=== PATIENT | female | born 1990 | race Caucasian/White ===

== ENCOUNTER 2017-08-18 14:49 | Emergency (ER) | payer OTHER, SELFPAY ==
--- NOTE | 2017-08-18 15:53 | EDPHYS ---
Physician Documentation [facility] Name: Radha Toth Age: 26 yrs Sex: Female : 1990 Arrival Date: 08/18/2017 Time: 14:50 Bed 23 Private MD: None, None ED Physician Daniel Connolly HPI: 08/18 15:49 This 26 yrs old Female presents to ER via Ambulatory with complaints of genia Abscess. 15:49 The patient presents with an abscess of the right lower quadrant, The patient presents genia with cellulitis of the right lower quadrant, the patient presents with a swollen area of the right lower quadrant. Description: The affected area is small, localized, erythematous, raised. Onset: The symptoms/episode began/occurred 5 day(s) ago. Possible cause(s): unknown. Associated signs and symptoms: The patient has no apparent associated signs or symptoms. 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 - Social history:: Smoking status: Patient uses tobacco products, smokes one-half pack cigarettes per day. - Ebola Screening: : No symptoms or risks identified at this time. - Family history:: not pertinent. ROS: 15:49 Constitutional: Negative for fever, chills, and weight loss, Eyes: Negative for injury, genia pain, redness, and discharge, ENT: Negative for injury, pain, and discharge, Neck: Negative for injury, pain, and swelling, Cardiovascular: Negative for chest pain, palpitations, and edema, Respiratory: Negative for shortness of breath, cough, wheezing, and pleuritic chest pain, Abdomen/GI: Negative for abdominal pain, nausea, vomiting, diarrhea, and constipation, Back: Negative for injury and pain, : Negative for injury, bleeding, discharge, and swelling, MS/Extremity: Negative for injury and deformity, Neuro: Negative for headache, weakness, numbness, tingling, and seizure, Psych: Negative for depression, anxiety, suicide ideation, homicidal ideation, and hallucinations, Allergy/Immunology: Negative for hives, rash, and allergies, Endocrine: Negative for neck swelling, polydipsia, polyuria, polyphagia, and marked weight changes, Hematologic/Lymphatic: Negative for swollen nodes, abnormal bleeding, and unusual bruising. 15:49 Skin: Positive for erythema, rash, of the right lower quadrant. Exam: 15:49 Constitutional: This is a well developed, well nourished patient who is awake, alert, genia and in no acute distress. Head/Face: Normocephalic, atraumatic. Eyes: Pupils equal round and reactive to light, extra-ocular motions intact. Lids and lashes normal. Conjunctiva and sclera are non-icteric and not injected. Cornea within normal limits. Periorbital areas with no swelling, redness, or edema. ENT: Nares patent. No nasal discharge, no septal abnormalities noted. Tympanic membranes are normal and external auditory canals are clear. Oropharynx with no redness, swelling, or masses, exudates, or evidence of obstruction, uvula midline. Mucous membranes moist. Neck: Trachea midline, no thyromegaly or masses palpated, and no cervical lymphadenopathy. Supple, full range of motion without nuchal rigidity, or vertebral point tenderness. No Meningismus. Chest/axilla: Normal chest wall appearance and motion. Nontender with no deformity. No lesions are appreciated. Cardiovascular: Regular rate and rhythm with a normal S1 and S2. No gallops, murmurs, or rubs. Normal PMI, no JVD. No pulse deficits. Respiratory: Lungs have equal breath sounds bilaterally, clear to auscultation and percussion. No rales, rhonchi or wheezes noted. No increased work of breathing, no retractions or nasal flaring. Abdomen/GI: Soft, non-tender, with normal bowel sounds. No distension or tympany. No guarding or rebound. No evidence of tenderness throughout. Back: No spinal tenderness. No costovertebral tenderness. Full range of motion. MS/ Extremity: Pulses equal, no cyanosis. Neurovascular intact. Full, normal range of motion. Neuro: Awake and alert, GCS 15, oriented to person, place, time, and situation. Cranial nerves II-XII grossly intact. Motor strength 5/5 in all extremities. Sensory grossly intact. Cerebellar exam normal. Normal gait. Psych: Awake, alert, with orientation to person, place and time. Behavior, mood, and affect are within normal limits. 15:49 Skin: abscess, that is small, of the right lower quadrant, cellulitis, that is minimal, induration, that is mild is noted. Vital Signs: 15:18 BP 109 / 58; Pulse 57; Resp 18 S; Temp 98.6(TE); Pulse Ox 99% on R/A; Weight 93.89 kg aa5 (R); Height 5 ft. 7 in. (170.18 cm) (R); Pain 7/10; 15:18 Body Mass Index 32.42 (93.89 kg, 170.18 cm) aa5 MDM: 15:23 Patient medically screened. [facility] 08/18 15:54 Order name: Urine Dipstick--Ancillary (enter results) 08/18 15:54 Order name: Urine --Ancillary (enter results) 08/18 15:49 Order name: Urine Dipstick-Ancillary (obtain specimen); Complete Time: 15:52 [facility] 08/18 15:49 Order name: Urine Test (obtain specimen); Complete Time: 15:52 [facility] 08/18 15:49 Order name: Wound dressing; Complete Time: 16:02 [facility] Administered Medications: 16:01 Drug: Bactrim (160 mg-800 mg (DS) 1 tablet Route: PO; rk2 16:12 Follow up: Response: No adverse reaction rk2 16:01 Drug: Bactroban Ointment 2 % 1 application Route: Topical; Site: wound; rk2 16:12 Follow up: Response: No adverse reaction rk2 16:02 Drug: Doxycycline 200 mg Route: PO; rk2 16:12 Follow up: Response: No adverse reaction rk2 Disposition: 08/18/17 15:53 Discharged to Home. Impression: Cutaneous abscess of abdominal wall. - Condition is Stable. - Discharge Instructions: Abscess, Abscess, [id number]. - Prescriptions for Bactroban 2 % Topical Ointment - Apply to affected area 1 application by TOPICAL route every 12 hours; 30 gram. Doxycycline Hyclate 100 mg Oral Tablet - take 1 tablet by ORAL route every 12 hours; 20 tablet. Motrin IB 200 mg Oral Tablet - take 2 tablet by ORAL route every 6 hours As needed as needed with food; 30 tablet. Bactrim DS 800- 160 mg Oral Tablet - take 1 tablet by ORAL route every 12 hours for 10 days; 20 tablet. - Medication Reconciliation Form, Thank You Letter, Antibiotic Education, Prescription Opioid Use form. - Follow up: Private Physician; When: 2 - 3 days; Reason: Recheck today's complaints, Continuance of care, Re-evaluation by your physician. Follow up: Cordell Villasenor MD; When: 2 - 3 days; Reason: Recheck today's complaints, Re-evaluation by your physician. - Problem is new. - Symptoms have improved. Signatures: Dispatcher [employer] EDMS Daniel Connolly MD MD cha Calderon, Audri RN RN aa5 Fe Kulkarni RN RN rk2 Corrections: (The following items were deleted from the chart) 16:13 15:53 08/18/2017 15:53 Discharged to Home. Impression: Cutaneous abscess of abdominal rk2 wall. Condition is Stable. Forms are Medication Reconciliation Form, Thank You Letter, Antibiotic Education, Prescription Opioid Use. Follow up: Private Physician; When: 2 - 3 days; Reason: Recheck today's complaints, Continuance of care, Re-evaluation by your physician. Follow up: Cordell Villasenor; When: 2 - 3 days; Reason: Recheck today's complaints, Re-evaluation by your physician. Problem is new. Symptoms have improved. genia
--- NOTE | 2017-08-18 15:53 | ER ---
Nurse's Notes [facility] Name: Radha Toth Age: 26 yrs Sex: Female : 1990 Arrival Date: 08/18/2017 Time: 14:50 Bed 23 Private MD: None, None Diagnosis: Cutaneous abscess of abdominal wall Presentation: 08/18 15:15 Presenting complaint: Patient states: abscess to RLQ that began 1 week ago. Pt also c/o aa5 nausea, denies vomiting. Transition of care: patient was not received from another setting of care. Onset of symptoms was July 2017. Risk Assessment: Do you want to hurt yourself or someone else? Patient reports no desire to harm self or others. Initial Sepsis Screen: Does the patient meet any 2 criteria? No. Patient's initial sepsis screen is negative. Does the patient have a suspected source of infection? No. Patient's initial sepsis screen is negative. Care prior to arrival: None. 15:15 Method Of Arrival: Ambulatory aa5 15:15 Acuity: TU 3 aa5 Triage Assessment: 16:02 General: Appears in no apparent distress. well groomed, well developed, well nourished, rk2 Behavior is calm, cooperative. Pain: Complains of pain in abdomen and right lower quadrant. Neuro: Level of Consciousness is alert, obeys commands, Oriented to person, place, time, situation. Respiratory: Airway is patent Respiratory effort is even, unlabored, Respiratory pattern is regular, symmetrical. Derm: Skin is pink, warm \\T\\ dry. 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 - Social history:: Smoking status: Patient uses tobacco products, smokes one-half pack cigarettes per day. - Ebola Screening: : No symptoms or risks identified at this time. - Family history:: not pertinent. Screenin:02 Abuse screen: Denies threats or abuse. Nutritional screening: No deficits noted. rk2 Tuberculosis screening: No symptoms or risk factors identified. Fall Risk None identified. Vital Signs: 15:18 BP 109 / 58; Pulse 57; Resp 18 S; Temp 98.6(TE); Pulse Ox 99% on R/A; Weight 93.89 kg aa5 (R); Height 5 ft. 7 in. (170.18 cm) (R); Pain 7/10; 15:18 Body Mass Index 32.42 (93.89 kg, 170.18 cm) aa5 ED Course: 14:50 Patient arrived in ED. mr 14:50 None, None is Private Physician. mr 15:17 Triage completed. aa5 15:17 Arm band placed on. aa 15:23 Daniel Connolly MD is Attending Physician. [facility] 15:52 Cordell Villasenor MD is Referral Physician. [facility] 16:01 Fe Kulkarni, JOSUÉ is Primary Nurse. rk2 16:02 Patient has correct armband on for positive identification. Bed in low position. Call rk2 light in reach. 16:12 No provider procedures requiring assistance completed. Patient did not have IV access rk2 during this emergency room visit. Administered Medications: 16:01 Drug: Bactrim (160 mg-800 mg (DS) 1 tablet Route: PO; rk2 16:12 Follow up: Response: No adverse reaction rk2 16:01 Drug: Bactroban Ointment 2 % 1 application Route: Topical; Site: wound; rk2 16:12 Follow up: Response: No adverse reaction rk2 16:02 Drug: Doxycycline 200 mg Route: PO; rk2 16:12 Follow up: Response: No adverse reaction rk2 Outcome: 15:53 Discharge ordered by . [facility] 16:12 Discharged to home ambulatory. rk2 16:12 Condition: good 16:12 Discharge instructions given to patient, Prescriptions given X 4. 16:13 Patient left the ED. rk2 Signatures: Daniel Connolly MD MD cha Rivera, Maria Dariana Goss, RN RN [facility] Fe Kulkarni RN RN rk2
[2017-08-18 15:58] LABS: Urine Blood 3+ (NEG); Urine Glucose NEGATIVE (NEG); Urine Protein 1+ (NEG); Urine Specific Gravity >1.030 (1.005-1.030)
[2017-08-18] MEDS ORDERED: SMZ./TMP. 800/160 MG TABLET ONE (15:58)
[2017-08-18] MEDS ORDERED: DOXYCYCLINE 100 MG CAP PO ONE (15:58)
[2017-08-18] MEDS ORDERED: MUPIROCIN 2% OINT 22GM TUBE TOP ONE (15:58)
[2017-08-18 16:18] VITALS: BP 109/58; TEMP 98.6; O2SAT 99
== END 2017-08-18 16:13 | disposition home or self-care (01) ==
LOC: ER 14:49
DX: L02.211 Cutaneous abscess of abdominal wall (principal); Z88.5 Allergy status to narcotic agent; Z91.048 Other nonmedicinal substance allergy status; F17.210 Nicotine dependence, cigarettes, uncomplicated
CPT/HCPCS: 81003; 81025; 99283

== ENCOUNTER 2017-11-10 14:04 | Emergency (ER) | payer OTHER ==
[2017-11-10] MEDS ORDERED: EPINEPHRINE/PF 1 MG/ML AMP ONE (14:14)
[2017-11-10] MEDS ORDERED: EPINEPHRINE INH 0.5 ML VIAL IH ONE (14:17)
[2017-11-10] MEDS ORDERED: DIPHENHYDRAMINE 50 MG/ML VIAL ONE (14:18)
[2017-11-10] MEDS ORDERED: FAMOTIDINE 20 MG/2 ML VIAL IV ONE (14:20)
[2017-11-10] MEDS ORDERED: METHYLPREDNISOLONE 125 MG INJ ONE (14:20)
[2017-11-10] MEDS ORDERED: ALBUTEROL 2.5 MG/3 ML NEB SOL ONE (14:30)
[2017-11-10] MEDS ORDERED: NA CHLORIDE 0.9% 1,000 ML ONE (14:30)
[2017-11-10 15:13] LABS: Protime INR 1.05
--- NOTE | 2017-11-10 15:17 | RAD REPORT ---
EXAM DESCRIPTION: RAD - Chest Single View - 11/10/2017 3:00 pm CLINICAL HISTORY: Cough and congestion, shortness of breath COMPARISON: February 2016 TECHNIQUE: AP portable chest image was obtained 1432 hours . FINDINGS: Lungs are clear. Heart and vasculature are normal. No measurable pleural effusion and no p neumothorax. No gross bony abnormality seen. No acute aortic findings suspected. IMPRESSION: No acute cardiopulmonary process. No significant interval change.
[2017-11-10 15:31] LABS: ALT/SGPT 22 U/L (12-78); AST/SGOT 13 U/L (15-37); Albumin 3.6 g/dL (3.4-5.0); Alkaline Phosphatase 67 U/L (45-117); BUN Blood Urea Nitrogen 7 mg/dL (7-18); Bicarbonate 25 mmol/L (21-32); Bilirubin Direct 0.2 mg/dL (0-0.2); Bilirubin Total 0.7 mg/dL (0.2-1.0); CKMB Creatine Kinase MB < 1.0 ng/mL (0.3-3.6); Creatine Phosphokinase 62 U/L (26-192); Glucose Level 108 mg/dL (74-106); Magnesium 2.2 mg/dL (1.8-2.4); NT PRO-BNP 6 pg/mL (<125); Potassium 3.4 mmol/L (3.5-5.1); Protein, Total 6.7 g/dL (6.4-8.2); Sodium Level 142 mmol/L (136-145); Troponin (Emerg Dept Use Only) < 0.02 ng/mL (0.0-0.045)
[2017-11-10 15:36] LABS: Absolute Lymphocytes (CBC) 4.5 K/uL (0.7-4.9); Absolute Monocytes 0.7 K/uL (0.1-1.3); Absolute Neutrophil 5.8 K/uL (1.8-8.0); Basophils % 0.1 % (0-1.3); Eosinophils % 1.5 % (0-4.4); MCH 29.7 pg (27.0-35.0); Monocytes % 6.5 % (3.3-12.3); RBC Red Blood Cell Count 4.71 M/uL (3.86-4.86)
--- NOTE | 2017-11-10 16:12 | ER ---
Nurse's Notes [facility] Name: Radha Toth Age: 27 yrs Sex: Female : 1990 Arrival Date: 11/10/2017 Time: 14:07 Bed 6 Private MD: Diagnosis: Allergy, unspecified Presentation: 11/10 14:07 Presenting complaint: Patient states: "I think I am having an allergic reaction". Pt aa5 reports reaction began today at 0900 and has gotten worse. Swelling to lips noted at this time. Pt having difficulty speaking at this time. Pt states "I feel like my throat is closing". 14:07 Acuity: TU 1 aa5 14:07 Transition of care: patient was not received from another setting of care. Onset of aa5 symptoms was November 10, 2017. Care prior to arrival: None. 14:07 Method Of Arrival: Ambulatory aa5 16:31 Risk Assessment: Do you want to hurt yourself or someone else? Patient reports no aj desire to harm self or others. Initial Sepsis Screen: Does the patient meet any 2 criteria? No. Patient's initial sepsis screen is negative. Does the patient have a suspected source of infection? No. Patient's initial sepsis screen is negative. 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 - Social history:: Patient/guardian denies using alcohol, street drugs, The patient lives with family, Smoking status: Patient/guardian denies using tobacco. - Ebola Screening: : No symptoms or risks identified at this time. - Family history:: not pertinent. Screenin:30 Abuse screen: Denies threats or abuse. Denies injuries from another. Nutritional aj screening: No deficits noted. Tuberculosis screening: No symptoms or risk factors identified. Fall Risk None identified. Assessment: 14:08 Reassessment: Dr. Morfin at bedside . aa5 14:15 Reassessment: Received VO for all medications ordered and administered by me prior to aa5 administration. . 14:22 General: Appears in no apparent distress. comfortable, Behavior is cooperative, drowsy, aj Smells of body odor. Pain: Denies pain. Neuro: Level of Consciousness is awake, alert, obeys commands, Oriented to person, place, time, situation, Appropriate for age. Respiratory: Reports shortness of breath Airway is patent Trachea midline Respiratory effort is even, unlabored, Respiratory pattern is regular, symmetrical, Breath sounds are clear bilaterally. Derm: Skin is intact, is healthy with good turgor, Skin is pink, warm \\T\\ dry. normal. 14:25 Reassessment: Patient is alert, oriented x 3, equal unlabored respirations, skin aa5 warm/dry/pink. Pt is able to speak clearly at this time. Reports symptoms have improved. Neb tx ongoing at this time. . 15:31 Reassessment: Patient appears in no apparent distress at this time. No changes from aj previously documented assessment. Patient and/or family updated on plan of care and expected duration. Pain level reassessed. Patient is alert, oriented x 3, equal unlabored respirations, skin warm/dry/pink. Patient denies pain at this time. 16:30 Reassessment: Patient appears in no apparent distress at this time. No changes from aj previously documented assessment. Patient and/or family updated on plan of care and expected duration. Pain level reassessed. Patient is alert, oriented x 3, equal unlabored respirations, skin warm/dry/pink. Patient states feeling better. Patient states symptoms have improved. Vital Signs: 14:08 BP 138 / 82; Pulse 97; Resp 22 S; Pulse Ox 97% on R/A; Weight 92.99 kg (R); aa5 14:22 BP 116 / 51; Pulse 82; Resp 16; Pulse Ox 100% on Nebulizer Mask; aj 14:48 BP 112 / 85; Pulse 80; Resp 26 S; Pulse Ox 99% on R/A; jl7 15:31 BP 117 / 57; Pulse 74; Resp 20; Pulse Ox 99% on R/A; aj 16:00 BP 111 / 49; Pulse 74; Resp 16 S; Pulse Ox 97% on R/A; jl7 16:23 BP 106 / 55; Pulse 75; Resp 16 S; Pulse Ox 96% on R/A; jl7 ED Course: 14:07 Patient arrived in ED. aa5 14:07 Arm band placed on Patient placed in an exam room, on a stretcher. aa5 14:12 Inserted saline lock: 18 gauge in left antecubital area, using aseptic technique. IV aa5 inserted by SHEA Kyle. 14:15 Khushi Morfin MD is Attending Physician. ma2 14:15 Side rails up X2. Pulse ox on. NIBP on. mb4 14:18 Triage completed. aa5 14:21 Alejandra Mackenzie, RN is Primary Nurse. aj 14:35 EKG done, by ED staff, reviewed by Khushi Morfin MD. jl7 14:43 X-ray completed. Portable x-ray completed in exam room. Patient tolerated procedure tm4 well. 15:01 XRAY Chest (1 view) In Process Unspecified. EDMS 15:02 Initial lab(s) drawn, by me, sent to lab. mb4 16:30 No provider procedures requiring assistance completed. IV discontinued, intact, aj bleeding controlled, No redness/swelling at site. Pressure dressing applied. Administered Medications: 14:10 Drug: EPINEPHrine 1mg/mL 1:1,000 0.5 mg Route: IM; Site: right vastus lateralis; aa5 16:28 Follow up: Response: Marked relief of symptoms aj 14:12 Drug: Albuterol 1.25 mg Route: Inhalation; aa5 14:12 Drug: Racemic EPINPHrine 0.5 ml Route: Inhalation; aa5 14:12 Drug: Benadryl 50 mg Route: IVP; Site: left antecubital; aa5 16:27 Follow up: Response: No adverse reaction; Marked relief of symptoms aj 14:15 Drug: MethylPrednisoLONE 125 mg Route: IVP; Site: left antecubital; aa5 16:28 Follow up: Response: No adverse reaction; Marked relief of symptoms aj 14:15 Drug: Pepcid 10 mg Route: IVP; Site: left antecubital; aa5 16:28 Follow up: Response: Marked relief of symptoms aj 14:23 Drug: NS 0.9% 1000 ml Route: IV; Rate: 1 bolus; Site: left antecubital; aa5 Outcome: 16:11 Discharge ordered by . ma2 16:30 Discharged to home ambulatory. solo 16:30 Condition: good 16:30 Discharge instructions given to patient, Instructed on discharge instructions, follow up and referral plans. medication usage, Demonstrated understanding of instructions, follow-up care, medications, Prescriptions given X 3. 16:31 Patient left the ED. solo Signatures: Dispatcher [employer] EDAlejandra Moreno RN Meche Franklin tm4 Dariana Goss RN RN aa5 Saúl Billingsley RN RN jl7 Khushi Morfin MD MD ma2 Anabella Rueda mb4 Corrections: (The following items were deleted from the chart) 14:24 14:22 General: Appears in no apparent distress. comfortable, Behavior is cooperative, aj drowsy, solo 14:27 14:15 Inserted saline lock: 18 gauge in left antecubital area, using aseptic technique. [email or web address] mb4
--- NOTE | 2017-11-10 16:12 | EDPHYS ---
Physician Documentation [facility] Name: Radha Toth Age: 27 yrs Sex: Female : 1990 Arrival Date: 11/10/2017 Time: 14:07 Bed 6 Private MD: ED Physician Khushi Morfin HPI: 11/10 16:04 This 27 yrs old Female presents to ER via Ambulatory with complaints of ma2 allergic reaction . 16:04 The patient presents with difficulty swallowing, rash, redness of skin, wheezing. ma2 Onset: The symptoms/episode began/occurred gradually, 3 day(s) ago. Associated signs and symptoms: Pertinent positives: hives, shortness of breath, Pertinent negatives: Altered mental status dysphagia, rash, Syncope vomiting. Possible causes: The patient has no known obvious cause for the symptoms. At home the patient or guardian has treated the symptoms with Benadryl. Severity of symptoms: At their worst the symptoms were moderate in the emergency department the symptoms have resolved. The patient has experienced similar episodes in the past. 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 - Social history:: Patient/guardian denies using alcohol, street drugs, The patient lives with family, Smoking status: Patient/guardian denies using tobacco. - Ebola Screening: : No symptoms or risks identified at this time. - Family history:: not pertinent. ROS: 16:04 Constitutional: Negative for fever, chills, and weight loss, Eyes: Negative for injury, ma2 pain, redness, and discharge, Cardiovascular: Negative for chest pain, palpitations, and edema. 16:04 ENT: Positive for difficulty swallowing, hoarseness, Negative for injury or acute deformity, rhinorrhea. 16:04 Skin: Positive for rash, Negative for abrasions, cellulitis, laceration(s), lesions, pallor, acute changes. 16:04 All other systems are negative. Exam: 16:04 Constitutional: This is a well developed, well nourished patient who is awake, alert, ma2 and in no acute distress. Head/Face: Normocephalic, atraumatic. Chest/axilla: Normal chest wall appearance and motion. Nontender with no deformity. No lesions are appreciated. Cardiovascular: Regular rate and rhythm with a normal S1 and S2. No gallops, murmurs, or rubs. Normal PMI, no JVD. No pulse deficits. Abdomen/GI: Soft, non-tender, with normal bowel sounds. No distension or tympany. No guarding or rebound. No evidence of tenderness throughout. Neuro: Awake and alert, GCS 15, oriented to person, place, time, and situation. Cranial nerves II-XII grossly intact. Motor strength 5/5 in all extremities. Sensory grossly intact. Cerebellar exam normal. Normal gait. 16:04 Respiratory: moderate respiratory distress is noted, Respirations: diffuse wheezes, Breath sounds: 16:04 Skin: hives. Vital Signs: 14:08 BP 138 / 82; Pulse 97; Resp 22 S; Pulse Ox 97% on R/A; Weight 92.99 kg (R); aa5 14:22 BP 116 / 51; Pulse 82; Resp 16; Pulse Ox 100% on Nebulizer Mask; aj 14:48 BP 112 / 85; Pulse 80; Resp 26 S; Pulse Ox 99% on R/A; jl7 15:31 BP 117 / 57; Pulse 74; Resp 20; Pulse Ox 99% on R/A; aj 16:00 BP 111 / 49; Pulse 74; Resp 16 S; Pulse Ox 97% on R/A; jl7 16:23 BP 106 / 55; Pulse 75; Resp 16 S; Pulse Ox 96% on R/A; jl7 MDM: 14:15 Patient medically screened. ma2 16:04 Differential diagnosis: anaphylaxis, angioedema, Status Asthmaticus urticaria, unlikely ma2 angioedema. Data reviewed: vital signs, nurses notes, EKG, radiologic studies. Counseling: I had a detailed discussion with the patient and/or guardian regarding: the historical points, exam findings, and any diagnostic results supporting the discharge/admit diagnosis, the presence of at least one elevated blood pressure reading (>120/80) during this emergency department visit, lab results, the need for outpatient follow up. Response to treatment: the patient's symptoms have resolved after treatment. ED course: ptn wants to go home . 11/10 14:20 Order name: Basic Metabolic Panel [facility] 11/10 14:20 Order name: CBC with Diff [facility] 11/10 14:20 Order name: Ckmb [facility] 11/10 14:20 Order name: CPK [facility] 11/10 14:20 Order name: LFT's [facility] 11/10 14:20 Order name: Magnesium [facility] 11/10 14:20 Order name: NT PRO-BNP [facility] 11/10 14:20 Order name: PT-INR [facility] 11/10 14:20 Order name: Ptt, Activated [facility] 11/10 14:20 Order name: Troponin (emerg Dept Use Only) [facility] 11/10 14:20 Order name: XRAY Chest (1 view) [facility] 11/10 14:20 Order name: EKG; Complete Time: 14:21 [facility] 11/10 14:20 Order name: Cardiac monitoring; Complete Time: 14:21 [facility] 11/10 14:20 Order name: EKG - Nurse/Tech; Complete Time: 14:35 [facility] 11/10 14:20 Order name: IV Saline Lock; Complete Time: 14:22 [facility] 11/10 14:20 Order name: Labs collected and sent; Complete Time: 14:22 [facility] 11/10 14:20 Order name: O2 Per Protocol; Complete Time: 14:22 [facility] 11/10 14:20 Order name: O2 Sat Monitoring; Complete Time: 14:22 [facility] Administered Medications: 14:10 Drug: EPINEPHrine 1mg/mL 1:1,000 0.5 mg Route: IM; Site: right vastus lateralis; aa5 16:28 Follow up: Response: Marked relief of symptoms aj 14:12 Drug: Albuterol 1.25 mg Route: Inhalation; aa5 14:12 Drug: Racemic EPINPHrine 0.5 ml Route: Inhalation; aa5 14:12 Drug: Benadryl 50 mg Route: IVP; Site: left antecubital; aa5 16:27 Follow up: Response: No adverse reaction; Marked relief of symptoms aj 14:15 Drug: MethylPrednisoLONE 125 mg Route: IVP; Site: left antecubital; aa5 16:28 Follow up: Response: No adverse reaction; Marked relief of symptoms aj 14:15 Drug: Pepcid 10 mg Route: IVP; Site: left antecubital; aa5 16:28 Follow up: Response: Marked relief of symptoms aj 14:23 Drug: NS 0.9% 1000 ml Route: IV; Rate: 1 bolus; Site: left antecubital; aa5 Disposition: 11/10/17 16:11 Discharged to Home. Impression: Allergy, unspecified. - Condition is Stable. - Prescriptions for Benadryl 25 mg Oral Capsule - take 1 capsule by ORAL route every 6 hours As needed; 30 tablet. Prednisone 20 mg Oral Tablet - take 3 tablet by ORAL route once daily for 5 days; 15 tablet. EpiPen 0.3 mg Injection auto- injector - inject 1 pen by INTRAMUSCULAR route every 1-2 hours Inject into the outer portion of the thigh, through clothing if necessary. Indicated in the emergency treatment of allergic reactions; 2 Cartridge. - Medication Reconciliation Form, Thank You Letter, Antibiotic Education, Prescription Opioid Use form. - Follow up: Private Physician; When: Tomorrow; Reason: Continuance of care. - Problem is new. - Symptoms are resolved. Signatures: Dispatcher [employer] EDAlejandra Moreno RN RN aj Calderon, Audri, RN RN aa5 Khushi Morfin MD MD ma2 Corrections: (The following items were deleted from the chart) 16:31 16:11 11/10/2017 16:11 Discharged to Home. Impression: Allergy, unspecified. Condition aj is Stable. Forms are Medication Reconciliation Form, Thank You Letter, Antibiotic Education, Prescription Opioid Use. Follow up: Private Physician; When: Tomorrow; Reason: Continuance of care. Problem is new. Symptoms are resolved. ma2
[2017-11-10 16:49] VITALS: BP 106/55; O2SAT 96
--- NOTE | 2017-11-11 19:27 | EKG ---
Test Date: 2017-11-10 Test Time: 14:34:06 Branch Operations Coordinator: KERRIE MEASUREMENT RESULTS: Intervals: Rate: 80 SD: 150 QRSD: 80 QT: 380 QTc: 438 [place]: P: 21 SD: 150 QRS: 15 T: 4 INTERPRETIVE STATEMENTS: Normal sinus rhythm Normal ECG Compared to ECG 02/28/2016 10:33:36 Sinus arrhythmia no longer present Electronically Signed On 11-11-17 19:24:31 CDT by Ferny Ruff
== END 2017-11-10 16:31 | disposition home or self-care (01) ==
LOC: ER 14:04
DX: R21 Rash and other nonspecific skin eruption (principal); Z91.09 Other allergy status, other than to drugs and biological substances
CPT/HCPCS: 36415; 71045; 80048; 80076; 82550; 82553; 83735; 83880; 84484; 85025; 85610; 85730; 93005; 96372; 96374; 96375; 99291; 99292; J0171; J2930; J7030

== ENCOUNTER 2017-11-11 22:48 | Emergency (ER) | payer OTHER ==
[2017-11-12] MEDS ORDERED: predniSONE 20 MG TAB ONE (00:09)
--- NOTE | 2017-11-12 00:45 | ER ---
Nurse's Notes [facility] Name: Radha Toth Age: 27 yrs Sex: Female : 1990 Arrival Date: 11/11/2017 Time: 22:51 Bed 20 Private MD: Diagnosis: allergic reaction;Angioedema Presentation: 11/11 22:52 Presenting complaint: Patient states: ALLERGIC REACTION. Transition of care: patient bp was not received from another setting of care. Onset: The symptoms/episode began/occurred suddenly, just prior to arrival. Anaphylaxis evaluation, the patient reports or I have noted the following symptoms which indicate a significant risk of anaphylaxis: lightheadedness urticaria . The patient has been moved to a treatment room and the charge nurse or attending physician has been notified. Onset of symptoms was November 11, 2017 at 22:00. Risk Assessment: Do you want to hurt yourself or someone else? Patient reports no desire to harm self or others. Initial Sepsis Screen: Does the patient meet any 2 criteria? No. Patient's initial sepsis screen is negative. Does the patient have a suspected source of infection? No. Patient's initial sepsis screen is negative. Care prior to arrival: Medication(s) given: BENADRYL. 22:52 Method Of Arrival: Ambulatory bp 22:52 Acuity: TU 2 bp Triage Assessment: 23:08 General: Appears distressed, uncomfortable, obese, Behavior is cooperative, appropriate bp for age, anxious. Pain: Denies pain. EENT: SWOLLEN TONGUE. Neuro: Level of Consciousness is awake, alert, obeys commands, Oriented to person, place, time, situation, Appropriate for age. Cardiovascular: Rhythm is sinus rhythm. Respiratory: Airway is patent Respiratory effort is even, unlabored, Respiratory pattern is symmetrical, tachypnea. GI: No signs and/or symptoms were reported involving the gastrointestinal system. : No signs and/or symptoms were reported regarding the genitourinary system. Derm: Rash noted that is urticaria. Musculoskeletal: Circulation, motion, and sensation intact. Range of motion: intact in all extremities. 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 - Social history:: Smoking status: unknown. - Ebola Screening: : Patient negative for fever greater than or equal to 101.5 degrees Fahrenheit, and additional compatible Ebola Virus Disease symptoms Patient denies exposure to infectious person Patient denies travel to an Ebola-affected area in the 21 days before illness onset No symptoms or risks identified at this time. Screenin:13 Abuse screen: Denies threats or abuse. Denies injuries from another. Nutritional bp screening: No deficits noted. Tuberculosis screening: No symptoms or risk factors identified. Fall Risk None identified. Assessment: 22:52 General: 27YO WF P/W GENERALIZED HIVES/URTICARIA, SWOLLEN TONGUE, MUFFLED VOICE TONES bp AND TROUBLE HANDLING OWN SECRETIONS. PT MOVED TO TX ROOM AND PIV PLACEDMD AT B/S.. 22:55 Respiratory: Airway AT RISK Respiratory effort is even, unlabored, Respiratory pattern bp is symmetrical, tachypnea. 23:10 Reassessment: S/S IMPROVED, VOICE TONES NOTABLY IMPROVED, NO DROOLING, STRIDOR OR bp WHEEZING NOTED. 23:52 Reassessment: S/S CONTINUE TO IMPROVE, NO VISIBLE RASH AT THIS TIME. Respiratory: bp Airway is patent Respiratory effort is even, unlabored, Respiratory pattern is regular, symmetrical, Breath sounds are clear. 11/12 00:37 Reassessment: S/S COMPLETELY RELIEVED, DISPO PENDING. bp 00:51 Reassessment: PT D/C HOME AMBULATORY, DX WITH ALLERGIC REACTION AND ANGIOEDEMA. bp Vital Signs: 11/11 22:52 BP 135 / 52; Pulse 88; Resp 24; Temp 98.1; Pulse Ox 97% ; Weight 90.72 kg; bp 23:00 BP 109 / 65; Pulse 88; Resp 18; Pulse Ox 97% ; bp 23:45 BP 121 / 57; Pulse 82; Resp 22; Pulse Ox 95% ; bp 18 00:36 BP 97 / 73; Pulse 74; Resp 20; Pulse Ox 98% ; bp ED Course: 11/11 22:51 Patient arrived in ED. es 22:51 Anne Schmitz FNP-C [facility]. snw 22:52 Junior Peterson MD is Attending Physician. snw 22:52 Inserted saline lock: 18 gauge in right antecubital area, using aseptic technique. bp Blood collected. 23:01 Ross Meraz, RN is Primary Nurse. bp 23:07 Triage completed. bp 23:11 Arm band placed on. bp 23:13 Patient has correct armband on for positive identification. Bed in low position. Call bp light in reach. Side rails up X2. hospital monitor on. Pulse ox on. NIBP on. 23:53 No provider procedures requiring assistance completed. bp 11/12 00:51 IV discontinued, intact, bleeding controlled, No redness/swelling at site. Pressure bp dressing applied. Administered Medications: 11/11 22:55 Drug: Decadron - Dexamethasone 10 mg Route: IVP; Site: right antecubital; bp 23:15 Follow up: Response: Marked relief of symptoms bp 22:55 Drug: Benadryl 50 mg Route: IVP; Site: right antecubital; bp 23:16 Follow up: Response: Marked relief of symptoms bp 22:55 Drug: Pepcid 20 mg Route: IVP; Site: right antecubital; bp 23:16 Follow up: Response: Marked relief of symptoms bp 22:55 Drug: NS 0.9% 1000 ml Route: IV; Rate: 1 bolus; Site: right antecubital; bp 11/12 00:52 Follow up: IV Status: Completed infusion; IV Intake: 1000ml bp 11/11 22:55 Drug: EPINEPHrine 1mg/mL 1:1,000 0.2 ml Route: Sub-Q; Site: right upper arm; bp 23:16 Follow up: Response: Marked relief of symptoms bp 11/12 00:07 Drug: predniSONE 60 mg Route: PO; bp 00:07 Follow up: Response: Medication administered at discharge. bp Intake: 00:52 IV: 1000ml; Total: 1000ml. bp Outcome: 00:45 Discharge ordered by . tw4 00:52 Discharged to home ambulatory, with family. bp 00:52 Condition: stable 00:52 Discharge instructions given to patient, Instructed on discharge instructions, follow up and referral plans. medication usage, Demonstrated understanding of instructions, follow-up care, medications, Prescriptions given X 3. 00:52 Patient left the ED. bp Signatures: Anne Schmitz, SHAYE-C SAAS ARCHITECT-Csnw Izabela Harkins Brian, RN RN Junior Vidal MD MD tw4
--- NOTE | 2017-11-12 00:45 | EDPHYS ---
Physician Documentation [facility] Name: Radha Toth Age: 27 yrs Sex: Female : 1990 Arrival Date: 11/11/2017 Time: 22:51 Bed 20 Private MD: ED Physician Junior Peterson HPI: 11/12 05:45 This 27 yrs old Female presents to ER via Ambulatory with complaints of tw4 Allergic Reaction. 05:45 The patient presents with difficulty swallowing, diffuse swelling. The patient presents tw4 with rash, that is diffuse, redness of skin. Onset: The symptoms/episode began/occurred today. Associated signs and symptoms: The patient has no apparent associated signs or symptoms. Possible causes: The patient has no known obvious cause for the symptoms. At home the patient or guardian has treated the symptoms with Benadryl. Severity of symptoms: At their worst the symptoms were moderate in the emergency department the symptoms are unchanged. The patient has not experienced similar symptoms in the past. 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 - Social history:: Smoking status: unknown. - Ebola Screening: : Patient negative for fever greater than or equal to 101.5 degrees Fahrenheit, and additional compatible Ebola Virus Disease symptoms Patient denies exposure to infectious person Patient denies travel to an Ebola-affected area in the 21 days before illness onset No symptoms or risks identified at this time. ROS: 11/12 05:45 Constitutional: Negative for fever, chills, and weight loss, Cardiovascular: Negative tw4 for chest pain, palpitations, and edema, Respiratory: Negative for shortness of breath, cough, wheezing, and pleuritic chest pain, Abdomen/GI: Negative for abdominal pain, nausea, vomiting, diarrhea, and constipation. Back: Negative for injury and pain, MS/Extremity: Negative for injury and deformity. ENT: Positive for difficulty swallowing. Skin: Positive for rash. Exam: 05:45 Constitutional: This is a well developed, well nourished patient who is awake, alert, tw4 and in no acute distress. 05:45 Cardiovascular: Regular rate and rhythm with a normal S1 and S2. No gallops, murmurs, or rubs. Normal PMI, no JVD. No pulse deficits. Respiratory: Lungs have equal breath sounds bilaterally, clear to auscultation and percussion. No rales, rhonchi or wheezes noted. No increased work of breathing, no retractions or nasal flaring. Abdomen/GI: Soft, non-tender, with normal bowel sounds. No distension or tympany. No guarding or rebound. No evidence of tenderness throughout. MS/ Extremity: Pulses equal, no cyanosis. Neurovascular intact. Full, normal range of motion. Neuro: Awake and alert, GCS 15, oriented to person, place, time, and situation. Cranial nerves II-XII grossly intact. Motor strength 5/5 in all extremities. Sensory grossly intact. Cerebellar exam normal. Normal gait. 05:45 Head/face: Noted is swelling, of the right eye, right cheek, left cheek, left eye and mouth. 05:45 ENT: Posterior pharynx: swelling, that is moderate. Vital Signs: 11/11 22:52 BP 135 / 52; Pulse 88; Resp 24; Temp 98.1; Pulse Ox 97% ; Weight 90.72 kg; bp 23:00 BP 109 / 65; Pulse 88; Resp 18; Pulse Ox 97% ; bp 23:45 BP 121 / 57; Pulse 82; Resp 22; Pulse Ox 95% ; bp 11/12 00:36 BP 97 / 73; Pulse 74; Resp 20; Pulse Ox 98% ; bp MDM: 11/11 22:56 Patient medically screened. tw4 11/12 05:45 Differential diagnosis: anaphylaxis, angioedema. Data reviewed: vital signs, nurses tw4 notes. Data interpreted: Pulse oximetry: Interpretation: normal. Counseling: I had a detailed discussion with the patient and/or guardian regarding: the historical points, exam findings, and any diagnostic results supporting the discharge/admit diagnosis. Medication response: Decadron ,Benadryl, and pepcid. Special discussion: I discussed with the patient/guardian in detail that at this point there is no indication for admission to the hospital. It is understood, however, that if the symptoms persist or worsen the patient needs to return immediately for re-evaluation. 11/11 22:56 Order name: Cardiac monitoring; Complete Time: 23:14 tw4 Administered Medications: 11/11 22:55 Drug: Decadron - Dexamethasone 10 mg Route: IVP; Site: right antecubital; bp 23:15 Follow up: Response: Marked relief of symptoms bp 22:55 Drug: Benadryl 50 mg Route: IVP; Site: right antecubital; bp 23:16 Follow up: Response: Marked relief of symptoms bp 22:55 Drug: Pepcid 20 mg Route: IVP; Site: right antecubital; bp 23:16 Follow up: Response: Marked relief of symptoms bp 22:55 Drug: NS 0.9% 1000 ml Route: IV; Rate: 1 bolus; Site: right antecubital; bp 11/12 00:52 Follow up: IV Status: Completed infusion; IV Intake: 1000ml bp 11/11 22:55 Drug: EPINEPHrine 1mg/mL 1:1,000 0.2 ml Route: Sub-Q; Site: right upper arm; bp 23:16 Follow up: Response: Marked relief of symptoms bp 11/12 00:07 Drug: predniSONE 60 mg Route: PO; bp 00:07 Follow up: Response: Medication administered at discharge. bp Disposition: 11/12/17 00:45 Discharged to Home. Impression: allergic reaction, Angioedema. - Condition is Stable. - Discharge Instructions: Allergies, Adult, Angioedema, [id number]. - Prescriptions for Medrol (Sha) 4 mg Oral Tablets, Dose Pack - take 1 tablet by ORAL route as directed - follow package instructions; 1 packet. Pepcid 20 mg Oral Tablet - take 1 tablet by ORAL route once daily; 20 tablet. EpiPen 0.3 mg Injection auto- injector - inject 1 pen by INTRAMUSCULAR route as directed Inject into the outer portion of the thigh, through clothing if necessary. Indicated in the emergency treatment of allergic reactions; 1 Pack. - Medication Reconciliation Form, Thank You Letter, Antibiotic Education, Prescription Opioid Use form. - Follow up: Private Physician; When: Upon discharge from the Emergency Department; Reason: Recheck today's complaints, Continuance of care, Re-evaluation by your physician. - Problem is new. - Symptoms have improved. Signatures: Ross Meraz RN RN bp Junior Peterson MD MD tw4 Corrections: (The following items were deleted from the chart) 00:52 00:45 11/12/2017 00:45 Discharged to Home. Impression: allergic reaction; Angioedema. bp Condition is Stable. Forms are Medication Reconciliation Form, Thank You Letter, Antibiotic Education, Prescription Opioid Use. Follow up: Private Physician; When: Upon discharge from the Emergency Department; Reason: Recheck today's complaints, Continuance of care, Re-evaluation by your physician. Problem is new. Symptoms have improved. tw4
[2017-11-12 00:58] VITALS: TEMP 98.1
[2017-11-12 01:01] VITALS: BP 97/73; O2SAT 98
== END 2017-11-12 00:52 | disposition home or self-care (01) ==
LOC: ER 22:48
DX: T78.3XXA Angioneurotic edema, initial encounter (principal); Z88.5 Allergy status to narcotic agent
CPT/HCPCS: 96361; 96372; 96374; 96375; 99284; J7512

== ENCOUNTER 2017-11-12 14:50 | Inpatient (IN) | payer OTHER ==
[2017-11-12] MEDS ORDERED: NA CHLORIDE 0.9% 1,000 ML ONE (15:19)
[2017-11-12] MEDS ORDERED: FAMOTIDINE 20 MG/2 ML VIAL IV ONE (15:35)
[2017-11-12] MEDS ORDERED: DEXAMETHASONE 10 MG/ML VIAL ONE (15:35)
[2017-11-12] MEDS ORDERED: DIPHENHYDRAMINE 12.5MG/5ML LIQ ONE (15:36)
[2017-11-12 15:38] LABS: Absolute Lymphocytes (CBC) 2.6 K/uL (0.7-4.9); Absolute Monocytes 0.6 K/uL (0.1-1.3); Basophils % 0.1 % (0-1.3); Lymphocytes % 12.7 % (15.3-44.8); MCH 29.7 pg (27.0-35.0); MCV 88.1 fL (80-100); MPV 8.8 fL (7.6-11.3); Monocytes % 2.9 % (3.3-12.3); RBC Red Blood Cell Count 4.43 M/uL (3.86-4.86)
--- NOTE | 2017-11-12 15:41 | ER ---
Nurse's Notes [facility] Name: Radha Toth Age: 27 yrs Sex: Female : 1990 Arrival Date: 11/12/2017 Time: 14:52 Bed 3 Private MD: None, None Diagnosis: Anaphylactic reaction due to unspecified food Presentation: 11/12 14:53 Presenting complaint: EMS states: Hives, Difficulty breathing, Stridor and wheezes, sg unknown what the patient is allergic to, but this has happened before over the last couple weeks, and was seen here in the dept. Transition of care: patient was not received from another setting of care. Onset: The symptoms/episode began/occurred acutely, just prior to arrival. Anaphylaxis evaluation, the patient reports or I have noted the following symptoms which indicate a significant risk of anaphylaxis: . The patient has been moved to a treatment room and the charge nurse or attending physician has been notified. Onset of symptoms was November 12, 2017. Risk Assessment: Do you want to hurt yourself or someone else? Patient reports no desire to harm self or others. Care prior to arrival: Medication(s) given: Epi IM x2, IV Benadryl 25 mg, Solumedrol 125 mg IVP. 14:53 Method Of Arrival: EMS: [facility] sg 14:53 Acuity: TU 2 sg 15:15 Initial Sepsis Screen: Does the patient meet any 2 criteria? No. Patient's initial hb sepsis screen is negative. Does the patient have a suspected source of infection? No. Patient's initial sepsis screen is negative. Historical: - Allergies: 14:59 Codeine (Anaphylaxis); sg - PMHx: 14:59 acute stroke years ago; angioedema, allergic reactions multiple; sg - Immunization history:: Adult Immunizations up to date. - Social history:: Smoking status: Patient/guardian denies using tobacco. - Ebola Screening: : No symptoms or risks identified at this time. Screenin:05 Abuse screen: Denies threats or abuse. Denies injuries from another. Nutritional hb screening: No deficits noted. Tuberculosis screening: No symptoms or risk factors identified. Fall Risk None identified. Assessment: 14:59 General: Appears in no apparent distress. Behavior is calm, cooperative. Pain: Denies hb pain. Neuro: Level of Consciousness is awake, alert, obeys commands, Oriented to person, place, time, situation. Cardiovascular: Heart tones S1 S2 present Capillary refill < 3 seconds Patient's skin is warm and dry. Respiratory: Airway is patent Trachea midline Respiratory effort is even, unlabored, Respiratory pattern is regular, symmetrical, Breath sounds are clear bilaterally. GI: No signs and/or symptoms were reported involving the gastrointestinal system. : No signs and/or symptoms were reported regarding the genitourinary system. EENT: No signs and/or symptoms were reported regarding the EENT system. Derm: Skin is pink, warm \T\ dry. Musculoskeletal: No signs and/or symptoms reported regarding the musculoskeletal system. 15:35 Reassessment: Pt c/o itching to bottom of feet and bilateral legs. MARLENY Lehman notified, hb Pepcid, Solu-Medrol. and Atarax administered as ordered. 16:01 Reassessment: Sudden onset SOB, severe anxiety, clawing at throat. SpO2 100% on 2L NC. hb MARLENY Lehman and Dr. Casper notified at bedside. Pt placed on NRB, epi .5mg IM administered as ordered. 16:09 Reassessment: MARLENY Brennan notified of critical lab value. WBC 20.2. ss 16:10 Reassessment: Pt sitting upright in bed, talking and laughing with family member at hb bedside. NAD. VSS. Vital Signs: 14:57 BP 114 / 102; Pulse 92; Resp 26 S; Temp 97.9; Pulse Ox 96% on R/A; sg 15:11 BP 128 / 62; Pulse 90; Resp 21 S; Pulse Ox 96% on R/A; sg 16:06 BP 118 / 59; Pulse 80; Resp 16; Pulse Ox 98% on R/A; ss ED Course: 14:52 Patient arrived in ED. sg 14:52 None, None is Private Physician. sg 14:57 Triage completed. sg 14:57 Arm band placed on. sg 15:02 Martin Eason NP is PHCP. pm1 15:02 Daniel Sharif MD is Attending Physician. pm1 15:04 PHCP role handed off by Martin Eason NP pm1 15:04 Dominik Roca PA is PHCP. pm1 15:05 Patient has correct armband on for positive identification. Placed in gown. Bed in low hb position. Call light in reach. Side rails up X 1. 15:15 Maintain EMS IV. Dressing intact. Site clean \T\ dry. Gauge \T\ site: 20g LEFT AC. minimal hb blood return, flushes easily. 15:25 Inserted saline lock: 20 gauge in right wrist, using aseptic technique. hb 15:39 Marcia Rueda RN is Primary Nurse. hb 15:40 Enmanuel Curtis MD is Hospitalizing Provider. jr8 16:28 No provider procedures requiring assistance completed. Patient admitted, IV remains in hb place. Administered Medications: 15:15 Drug: NS 0.9% 1000 ml Route: IV; Rate: 1000 ml; Site: left antecubital; hb 16:15 Follow up: Response: No adverse reaction; IV Status: Completed infusion hb 15:35 Drug: Pepcid 20 mg Route: IVP; Site: left antecubital; hb 16:00 Follow up: Response: No adverse reaction hb 15:35 Drug: hydrOXYzine 25 mg Route: IM; Site: right deltoid; hb 16:00 Follow up: Response: No adverse reaction hb 15:35 Drug: Decadron - Dexamethasone 10 mg Route: IVP; Site: left antecubital; hb 16:10 Follow up: Response: No adverse reaction hb 16:02 Drug: EPINEPHrine 1mg/mL 1:1,000 0.5 mg Route: IM; Site: right vastus lateralis; hb 16:30 Follow up: Response: No adverse reaction hb Outcome: 15:40 Decision to Hospitalize by Provider. jr8 16:28 Admitted to Tele accompanied by tech, family with patient, via wheelchair, room 414, hb with oxygen, with chart, Report called to JOSUÉ Guillen 16:28 Condition: stable 16:28 Instructed on the need for admit, Demonstrated understanding of instructions. 16:49 Patient left the ED. hb Signatures: Jaden Patel RN RN sg Smirch, Shelby, RN RN ss Roszak, Josh, PA PA jr8 Martin Eason, OFFICE MACHINE SERVICE SUPERVISOR OFFICE MACHINE SERVICE SUPERVISOR pm1 Marcia Rueda RN RN hb
--- NOTE | 2017-11-12 15:42 | EDPHYS ---
Physician Documentation [facility] Name: Radha Toth Age: 27 yrs Sex: Female : 1990 Arrival Date: 11/12/2017 Time: 14:52 Bed 3 Private MD: None, None ED Physician Daniel Sharif HPI: 11/12 15:36 This 27 yrs old Female presents to ER via EMS with complaints of Allergic jr8 Reaction. 15:36 The patient presents with difficulty swallowing, itching, redness of skin, shortness of jr8 breath, stridor, wheezing. Onset: The symptoms/episode began/occurred acutely, today. Associated signs and symptoms: The patient has no apparent associated signs or symptoms. Possible causes: The patient has no known obvious cause for the symptoms. At home the patient or guardian has treated the symptoms with nothing. Severity of symptoms: At their worst the symptoms were severe in the emergency department the symptoms have improved markedly. The patient has experienced similar episodes in the past, a few times. The patient has been recently seen by a physician:. EMS called out for allergic reaction. Stated that patient had urticaria along with breathing difficulty and obtundation. Benadryl, Solu-Medrol, and Epinephrine x 2 IM were given. Patient now doing much better. Has been here the past two days for same symptoms. Every time was after a meal. Historical: - Allergies: 14:59 Codeine (Anaphylaxis); sg - PMHx: 14:59 acute stroke years ago; angioedema, allergic reactions multiple; sg - Immunization history:: Adult Immunizations up to date. - Social history:: Smoking status: Patient/guardian denies using tobacco. - Ebola Screening: : No symptoms or risks identified at this time. ROS: 15:36 Eyes: Negative for injury, pain, redness, and discharge, ENT: Negative for injury, jr8 pain, and discharge, Neck: Negative for injury, pain, and swelling, Cardiovascular: Negative for chest pain, palpitations, and edema, Abdomen/GI: Negative for abdominal pain, nausea, vomiting, diarrhea, and constipation, Back: Negative for injury and pain, MS/Extremity: Negative for injury and deformity, Neuro: Negative for headache, weakness, numbness, tingling, and seizure. 15:36 Respiratory: Positive for dyspnea on exertion, shortness of breath, wheezing. 15:36 Skin: Positive for rash. Exam: 15:36 Eyes: Pupils equal round and reactive to light, extra-ocular motions intact. Lids and jr8 lashes normal. Conjunctiva and sclera are non-icteric and not injected. Cornea within normal limits. Periorbital areas with no swelling, redness, or edema. ENT: Nares patent. No nasal discharge, no septal abnormalities noted. Tympanic membranes are normal and external auditory canals are clear. Oropharynx with no redness, swelling, or masses, exudates, or evidence of obstruction, uvula midline. Mucous membranes moist. Neck: Trachea midline, no thyromegaly or masses palpated, and no cervical lymphadenopathy. Supple, full range of motion without nuchal rigidity, or vertebral point tenderness. No Meningismus. Cardiovascular: Regular rate and rhythm with a normal S1 and S2. No gallops, murmurs, or rubs. Normal PMI, no JVD. No pulse deficits. Respiratory: Lungs have equal breath sounds bilaterally, clear to auscultation and percussion. No rales, rhonchi or wheezes noted. No increased work of breathing, no retractions or nasal flaring. Abdomen/GI: Soft, non-tender, with normal bowel sounds. No distension or tympany. No guarding or rebound. No evidence of tenderness throughout. Back: No spinal tenderness. No costovertebral tenderness. Full range of motion. Skin: Warm, dry with normal turgor. Normal color with no rashes, no lesions, and no evidence of cellulitis. MS/ Extremity: Pulses equal, no cyanosis. Neurovascular intact. Full, normal range of motion. Neuro: Awake and alert, GCS 15, oriented to person, place, time, and situation. Cranial nerves II-XII grossly intact. Motor strength 5/5 in all extremities. Sensory grossly intact. Cerebellar exam normal. Normal gait. Vital Signs: 14:57 BP 114 / 102; Pulse 92; Resp 26 S; Temp 97.9; Pulse Ox 96% on R/A; sg 15:11 BP 128 / 62; Pulse 90; Resp 21 S; Pulse Ox 96% on R/A; sg 16:06 BP 118 / 59; Pulse 80; Resp 16; Pulse Ox 98% on R/A; ss MDM: 15:08 Patient medically screened. 8 15:36 Data reviewed: vital signs, nurses notes, lab test result(s). Data interpreted: Pulse jr8 oximetry: on room air is 96 %. Interpretation: normal. Counseling: I had a detailed discussion with the patient and/or guardian regarding: the historical points, exam findings, and any diagnostic results supporting the discharge/admit diagnosis, lab results, the need for further work-up and treatment in the hospital. 11/12 15:09 Order name: CBC with Diff; Complete Time: 16:15 jr8 11/12 15:09 Order name: Basic Metabolic Panel; Complete Time: 16:15 jr8 11/12 15:44 Order name: Manual Differential; Complete Time: 16:15 EDMS 11/12 15:09 Order name: IV; Complete Time: 15:10 jr8 Administered Medications: 15:15 Drug: NS 0.9% 1000 ml Route: IV; Rate: 1000 ml; Site: left antecubital; hb 16:15 Follow up: Response: No adverse reaction; IV Status: Completed infusion hb 15:35 Drug: Pepcid 20 mg Route: IVP; Site: left antecubital; hb 16:00 Follow up: Response: No adverse reaction hb 15:35 Drug: hydrOXYzine 25 mg Route: IM; Site: right deltoid; hb 16:00 Follow up: Response: No adverse reaction hb 15:35 Drug: Decadron - Dexamethasone 10 mg Route: IVP; Site: left antecubital; hb 16:10 Follow up: Response: No adverse reaction hb 16:02 Drug: EPINEPHrine 1mg/mL 1:1,000 0.5 mg Route: IM; Site: right vastus lateralis; hb 16:30 Follow up: Response: No adverse reaction hb Disposition: 17:30 Co-signature as Attending Physician, Daniel Sharif MD I agree with the assessment and kdr plan of care. Disposition: 11/12/17 15:40 Hospitalization ordered by Enmanuel Curtis for Observation. Preliminary diagnosis is Anaphylactic reaction due to unspecified food. - Bed requested for Telemetry/MedSurg (observation). - Status is Observation. hb - Condition is Fair. - Problem is new. - Symptoms have improved. UTI on Admission? No Signatures: Dispatcher [employer] Melissa Knowles RN RN dw Gay, Steven, RN RN sg Rittger, Kevin, MD MD [facility] Dominik Roca PA PA jr8 Marcia Rueda, RN RN hb Corrections: (The following items were deleted from the chart) 16:11 15:40 Hospitalization Ordered by Enmanuel Curtis MD for Observation. Preliminary diagnosis dw is Anaphylactic reaction due to unspecified food. Bed requested for Telemetry/MedSurg (observation). Status is Observation. Condition is Fair. Problem is new. Symptoms have improved. UTI on Admission? No. jr8 16:49 16:11 11/12/2017 15:40 Hospitalization Ordered by Enmanuel Curtis MD for Observation. hb Preliminary diagnosis is Anaphylactic reaction due to unspecified food. Bed requested for Telemetry/MedSurg (observation). Status is Observation. Condition is Fair. Problem is new. Symptoms have improved. UTI on Admission? No. dw
[2017-11-12 15:51] LABS: Potassium 3.3 mmol/L (3.5-5.1)
[2017-11-12] MEDS ORDERED: hydrOXYzine HCl 50 MG/ML VIAL IM ONE (16:00)
[2017-11-12] MEDS ORDERED: EPINEPHRINE/PF 1 MG/ML AMP ONE (16:02)
[2017-11-12 16:08] LABS: Blood Morphology Comment NOT SEEN (NOT SEEN); Platelet Estimate ADEQ; Toxic Granulation 1+
[2017-11-12] MEDS ORDERED: ONDANSETRON 4 MG/2 ML VIAL IV PRN (16:52)
[2017-11-12] MEDS: NA CHLORIDE 0.9% 1,000 ML IV SCH (17:00)
[2017-11-12] MEDS: METHYLPREDNISOLONE 40 MG INJ IV SCH (17:53)
[2017-11-12] MEDS ORDERED: METHYLPREDNISOLONE 125 MG INJ ONE (19:37)
[2017-11-12] MEDS ORDERED: EPINEPHRINE INH 0.5 ML VIAL IH ONE (20:52)
[2017-11-13] MEDS: METHYLPREDNISOLONE 40 MG INJ IV SCH ×5 (03:47→23:55)
[2017-11-13] MEDS: NA CHLORIDE 0.9% 1,000 ML IV SCH ×3 (03:50→22:52)
[2017-11-13 05:09] LABS: Absolute Monocytes 0.5 K/uL (0.1-1.3); Absolute Neutrophil 9.9 K/uL (1.8-8.0); Basophils % 0.3 % (0-1.3); Hematocrit 34.8 % (36.0-45.0); Lymphocytes % 15.8 % (15.3-44.8); MCH 29.6 pg (27.0-35.0); MCV 87.7 fL (80-100); MPV 9.5 fL (7.6-11.3); Monocytes % 4.2 % (3.3-12.3); RBC Red Blood Cell Count 3.96 M/uL (3.86-4.86)
[2017-11-13 05:22] LABS: BUN Blood Urea Nitrogen 11 mg/dL (7-18); Bicarbonate 24 mmol/L (21-32); Glucose Level 147 mg/dL (74-106); Sodium Level 144 mmol/L (136-145)
[2017-11-13] MEDS: ACETAMINOPHEN 500 MG TAB PO PRN (05:44)
[2017-11-13] MEDS ORDERED: DIPHENHYDRAMINE 25 MG TAB/CAP ONE (09:20)
[2017-11-13] MEDS ORDERED: LORATADINE 10 MG TAB PO PRN (10:48)
[2017-11-13] MEDS: MONTELUKAST 10 MG TAB PO SCH (11:14)
[2017-11-13] MEDS: RANITIDINE 150 MG TABLET PO SCH (11:14)
--- NOTE | 2017-11-13 13:58 | P.HP ---
Certification for Inpatient Patient admitted to: Inpatient With expected LOS: >2 Midnights Practitioner: I am a practitioner with admitting privileges, knowledge of patient current condition, hospital course, and medical plan of care. Services: Services provided to patient in accordance with Admission requirements found in Title 42 Section 412.3 of the Code of Federal Regulations Patient History Date of Service: 11/13/17 Primary Care Provider: Ever Reason for admission: anaphalyxis History of Present Illness: Patient is a pleasant woman. She has been having itching reddness. She did this with a boudon ball, cheese pizza. She has been to the ER 3 nights in a row. She was started on steroids. Was doing well on the floor. Had dinner of [employer] steak and cake. She again had the symptoms. She had a code yellow called. Was given more steroids and transfered to ICU. She has a history of migranes. No new medications, or new home. No noted recent exposures. 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 She does not recall any episodes like this previously. Allergies codeine Allergy (Mild, Verified 11/12/17 16:54) Unknown "crest toothpaste" Adverse Reaction (Intermediate, Uncoded 11/12/17 16:54) Anaphylaxis Home Medications: NK [No Home Meds] 11/12/17 - Past Medical/Surgical History Has patient received pneumonia vaccine in the past: No Diabetic: No -: cholecystitis -: left ankle surgery -: choleystectomy - Family History Father -: Heart disease, Cancer Mother -: Heart disease, Cancer - Social History Smoking Status: Current every day smoker Alcohol use: Yes Caffeine use: Yes Place of Residence: Home Review of Systems 10-point ROS is otherwise unremarkable General: Sweats, Other (generalized itching) ENT: Throat Pain (after eating) Respiratory: Shortness of Breath Integumentary: Other (generalized erythema of the skin) Physical Examination - Vital Signs Temperature: 98.4 F Blood Pressure: 111/55 Pulse: 46 Respirations: 16 Pulse Ox (%): 94 - Physical Exam General: Alert, In no apparent distress HEENT: Atraumatic, PERRLA, Mucous membr. moist/pink, EOMI, Sclerae nonicteric Neck: Supple, 2+ carotid pulse no bruit, No LAD, Without JVD or thyroid abnormality Respiratory: Clear to auscultation bilaterally, Normal air movement Cardiovascular: Regular rate/rhythm, Normal S1 S2 Gastrointestinal: Normal bowel sounds, No tenderness Musculoskeletal: No tenderness Integumentary: No rashes Neurological: Normal gait, Normal speech, Normal strength at 5/5 x4 extr, Normal tone, Normal affect Lymphatics: No axilla or inguinal lymphadenopathy - Studies Laboratory Data (last 24 hrs) 11/12/17 15:26: WBC 20.2 H* D, Hgb 13.1, Hct 39.0, Plt Count 301 11/12/17 15:25: Sodium 145, Potassium 3.3 L, BUN 8, Creatinine 0.90, Glucose 171 H Assessment and Plan - Problems (Diagnosis) (1) Anaphylaxis Onset Date: 11/13/17 Current Visit: Yes Status: Acute Plan: Have consulted Dr. Balbuena and discussed with Dr. Mejía. The patient is not likely to have esophagitis. As this is mostly pain in the throat and esophagus. She may have an unknow allergan exposure or food allery. Per Dr. Mejía will start singular, H1 and H2 Deonte. She will need an epipen on discharge. Would most likely need a follow up with [facility] system manager in [place]. Qualifiers: Encounter type: initial encounter Qualified Code(s): T78.2XXA - Anaphylactic shock, unspecified, initial encounter Discharge Plan: Home Plan to discharge in: 24 Hours - Advance Directives Does patient have a Living Will: No Does patient have a Durable POA for Healthcare: No - Code Status/Comfort Care Code Status Assessed: Yes Code Status: Full Code Physician Review: Patient Assessed, Agree with Above Assessment and Plan Critical Care: Yes Time Spent Managing Pts Care (In Minutes): 75
[2017-11-13] MEDS: DIPHENHYDRAMINE 25 MG TAB/CAP PO PRN (20:17)
[2017-11-14] MEDS: ACETAMINOPHEN 500 MG TAB PO PRN (01:33)
[2017-11-14] MEDS: NA CHLORIDE 0.9% 1,000 ML IV SCH ×2 (01:37→07:37)
[2017-11-14 06:07] VITALS: O2SAT 97
[2017-11-14] MEDS: METHYLPREDNISOLONE 40 MG INJ IV SCH (06:26)
[2017-11-14 06:35] VITALS: BMI 35.1
[2017-11-14] MEDS: DIPHENHYDRAMINE 25 MG TAB/CAP PO PRN (07:18)
[2017-11-14] MEDS: RANITIDINE 150 MG TABLET PO SCH (07:36)
[2017-11-14] MEDS: MONTELUKAST 10 MG TAB PO SCH (07:37)
--- NOTE | 2017-11-14 08:02 | P.DS ---
Admission Date: 11/12/17 Discharge Date: 11/14/17 Primary Care Provider: Ever Disposition: ROUTINE DISCHARGE Discharge Condition: GOOD Reason for Admission: anaphalyxis - Problems (1) Anaphylaxis Onset Date: 11/13/17 Current Visit: Yes Status: Acute Qualifiers: Encounter type: initial encounter Qualified Code(s): T78.2XXA - Anaphylactic shock, unspecified, initial encounter Brief History of Present Illness: Patient is a pleasant woman. She has been having itching reddness. She did this with a boudon ball, cheese pizza. She has been to the ER 3 nights in a row. She was started on steroids. Was doing well on the floor. Had dinner of [employer] steak and cake. She again had the symptoms. She had a code yellow called. Was given more steroids and transfered to ICU. She has a history of migranes. No new medications, or new home. No noted recent exposures. 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 She does not recall any episodes like this previously. Hospital Course: Patient admitted to the icu. She had several episodes of itching. Once after solumedrol given. Some improvement with allergy medications. Have discussed this case with Dr. Balbuena and Dr. Kim. She did have an episode 1 year ago with a crest whitening toothpaste. Will discharge her on h1 and h2 blockers , singular and an epipen. Will also try a proair inhaler. Will try to refer her from the office. Provide the number to the clinic in [place] . Will have her follow up with me as well. Vital Signs/Physical Exam: Temp Pulse Resp BP Pulse Ox 98.6 F 62 19 109/58 L 95 11/14/17 04:00 11/14/17 07:00 11/14/17 07:00 11/14/17 07:00 11/14/17 07:00 General: Mild distress, Other (reddness and itching) HEENT: Atraumatic, PERRLA, EOMI Neck: Supple, JVD not distended Respiratory: Clear to auscultation bilaterally, Normal air movement Cardiovascular: Regular rate/rhythm, Normal S1 S2 Gastrointestinal: Normal bowel sounds, No tenderness Musculoskeletal: No tenderness Integumentary: No rashes, Erythema, Warmth Neurological: Normal speech, Normal tone, Normal affect Lymphatics: No axilla or inguinal lymphadenopathy Laboratory Data at Discharge: WBC 12.4 K/uL (4.3-10.9) H D 11/13/17 04:40 Hgb 11.7 g/dL (12.0-15.0) L 11/13/17 04:40 Hct 34.8 % (36.0-45.0) L 11/13/17 04:40 Plt Count 229 K/uL (152-406) D 11/13/17 04:40 Sodium 144 mmol/L (136-145) 11/13/17 04:40 Potassium 4.0 mmol/L (3.5-5.1) 11/13/17 04:40 BUN 11 mg/dL (7-18) 11/13/17 04:40 Creatinine 0.60 mg/dL (0.55-1.3) 11/13/17 04:40 Glucose 147 mg/dL (74-106) H 11/13/17 04:40 Home Medications: Diphenhydramine [Benadryl*] 25 mg PO Q8H PRN 30 Days #30 tab 11/14/17 Epinephrine [Epipen] 0.3 mg IJ ONCE 30 Days #1 auto.injct 11/14/17 Loratadine [Claritin*] 10 mg PO DAILY PRN 90 Days #90 tab 11/14/17 Montelukast [Singulair*] 10 mg PO DAILY 90 Days #90 tab 11/14/17 Ranitidine [Zantac*] 150 mg PO BID 90 Days #180 tab 11/14/17 New Medications: Diphenhydramine [Benadryl*] 25 mg PO Q8H PRN 30 Days #30 tab PRN Reason: Itching Epinephrine [Epipen] 0.3 mg IJ ONCE 30 Days #1 auto.injct Loratadine [Claritin*] 10 mg PO DAILY PRN 90 Days #90 tab PRN Reason: Allergies Montelukast [Singulair*] 10 mg PO DAILY 90 Days #90 tab Ranitidine [Zantac*] 150 mg PO BID 90 Days #180 tab Diet: Adams Activity: Ad nahomi Followup: Enmanuel Curtis MD [ACTIVE - CAN ADMIT] - 1-2 Weeks Time spent managing pt's care (in minutes): 35
[2017-11-14 11:15] VITALS: BP 116/59; TEMP 97.6
== END 2017-11-14 10:00 | disposition home or self-care (01) | DRG 916 ==
LOC: ER 14:50 → ERHOLD 15:52 → 4TH 16:28 → 3RD-ICU 19:40 → OBSVTOIN 20:30
PROVIDERS: ADMIT Internal Medicine; ATTEND Internal Medicine
DX: T78.2XXA Anaphylactic shock, unspecified, initial encounter (principal)
CPT/HCPCS: 36415; 71045; 80048; 80076; 82550; 82553; 83735; 83880; 84484; 85025; 85610; 85730; 93005; 94640; 96361; 96372; 96374; 96375; 99284; 99285; 99291; 99292; J0171; J1100; J2920; J2930; J3410; J7030; J7512

== ENCOUNTER 2018-12-09 06:35 | Emergency (ER) | payer OTHER, SELFPAY ==
[2018-12-09] MEDS ORDERED: AZITHROMYCIN 250 MG TAB ONE (07:13)
[2018-12-09] MEDS ORDERED: AMOX/K CLAV 875 MG TAB ONE (07:14)
--- NOTE | 2018-12-09 08:50 | RAD REPORT ---
EXAM DESCRIPTION: RAD - Hand Left 3 View - 12/09/2018 8:16 am CLINICAL HISTORY: ANIMAL BITE COMPARISON: No comparisons FINDINGS: Soft tissue swelling is seen in the wrist. No fracture or radiopaque foreign body seen.
--- NOTE | 2018-12-09 08:51 | RAD REPORT ---
EXAM DESCRIPTION: RAD - Hand Right 3 View - 12/09/2018 8:16 am CLINICAL HISTORY: ANIMAL BITE COMPARISON: No comparisons FINDINGS: No evidence of acute fracture or radiopaque foreign body. Soft tissue swelling is noted.
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
--- NOTE | 2018-12-09 08:57 | ER ---
Nurse's Notes [facility] Name: Radha Toth Age: 28 yrs Sex: Female : 1990 Arrival Date: 12/09/2018 Time: 06:38 Bed 18 Private MD: Diagnosis: Animal Bite Presentation: 12/09 06:40 Presenting complaint: Patient states: her dogs got a hold of her cat and she was trying aa1 to separate them and she was bitten several time on both of her arms and was concerned because she is 7 weeks . Transition of care: patient was not received from another setting of care. Onset of symptoms was December 09, 2018. Risk Assessment: Do you want to hurt yourself or someone else? Patient reports no desire to harm self or others. Initial Sepsis Screen: Does the patient meet any 2 criteria? No. Patient's initial sepsis screen is negative. Does the patient have a suspected source of infection? Yes: Skin breakdown/wound. Care prior to arrival: None. 06:40 Method Of Arrival: Ambulatory aa1 06:40 Acuity: TU 4 aa1 Triage Assessment: 06:41 General: Appears in no apparent distress. comfortable, Behavior is calm, cooperative, aa1 appropriate for age. Historical: - Allergies: 07:00 Codeine (Anaphylaxis); aa1 - Home Meds: 07:00 None [Active]; aa1 - PMHx: 07:00 acute stroke years ago; angioedema, allergic reactions multiple; aa1 - PSHx: 07:00 Cholecystectomy; ankle; aa1 - Immunization history:: Last tetanus immunization: < 5 years ago. - Social history:: Smoking status: Patient uses tobacco products, denies chronic smoking, but will smoke occasionally. - Ebola Screening: : No symptoms or risks identified at this time. Screenin:15 Abuse screen: Denies threats or abuse. Denies injuries from another. Nutritional da2 screening: No deficits noted. Tuberculosis screening: No symptoms or risk factors identified. Fall Risk None identified. Assessment: 07:15 General: Appears in no apparent distress. uncomfortable, Behavior is calm, cooperative, da2 appropriate for age. Pain: Complains of pain in left hand, right arm and left arm Pain does not radiate. Pain currently is 10 out of 10 on a pain scale. Pain began 30 min ago. Is continuous. Neuro: Level of Consciousness is awake, alert, obeys commands. Cardiovascular: Patient's skin is warm and dry. Respiratory: Airway is patent Respiratory effort is even, unlabored, Respiratory pattern is regular, symmetrical. Derm: Skin is pink, warm \T\ dry. Injury Description: Bite sustained to left hand, right arm and left arm caused by a cat, is superficial, from animal, was sustained less than 30 minutes ago. bite and scratches from cat being attacked by dog. 07:30 Reassessment: Patient appears in no apparent distress at this time. No changes from da2 previously documented assessment. Patient and/or family updated on plan of care and expected duration. Pain level reassessed. Patient is alert, oriented x 3, equal unlabored respirations, skin warm/dry/pink. 08:30 Reassessment: Patient appears in no apparent distress at this time. Patient and/or jl7 family updated on plan of care and expected duration. Pain level reassessed. Patient is alert, oriented x 3, equal unlabored respirations, skin warm/dry/pink. Vital Signs: 06:41 BP 115 / 62; Pulse 84; Resp 18; Temp 99.0; Pulse Ox 100% on R/A; Weight 83.46 kg; aa1 Height 5 ft. 8 in. (172.72 cm); Pain 10/10; 08:30 BP 108 / 68; Pulse 83; Resp 16 S; Pulse Ox 100% on R/A; jl7 06:41 Body Mass Index 27.98 (83.46 kg, 172.72 cm) aa1 ED Course: 06:38 Patient arrived in ED. ds1 06:41 Arm band placed on right wrist. Patient placed in an exam room, on a stretcher. aa1 06:44 Werner Day PA is PHCP. [facility] 06:44 Justin Colindres MD is Attending Physician. [facility] 06:58 Triage completed. aa1 07:15 Bed in low position. Call light in reach. Side rails up X 1. Pulse ox on. NIBP on. Warm da2 blanket given. Ice pack to injury. 07:15 Wound care: to cat scratches and bite located on left hand, right arm and left arm was da2 cleaned with Hibiclens, dressed with Neosporin, 4X4s, ice pack applied. Patient tolerated well. 08:08 Saúl Billingsley, RN is Primary Nurse. jl7 08:16 Hand Right 3 View XRAY In Process Unspecified. EDMS 08:17 Hand Left 3 View XRAY In Process Unspecified. EDMS 08:55 Awaiting radiology results. da2 09:05 No provider procedures requiring assistance completed. Patient did not have IV access da2 during this emergency room visit. Administered Medications: 07:37 Drug: Augmentin 875 mg Route: PO; da2 07:40 Follow up: Response: Medication administered at discharge. jl7 07:37 Drug: AZITHromycin 500 mg Route: PO; da2 07:40 Follow up: Response: Medication administered at discharge. jl7 Outcome: 08:56 Discharge ordered by MD. [facility] 09:05 Discharged to home ambulatory. da2 09:05 Condition: stable 09:05 Discharge instructions given to patient, Instructed on discharge instructions, follow up and referral plans. medication usage, wound care, Demonstrated understanding of instructions, follow-up care, medications, wound care, Prescriptions given X 2. 09:06 Patient left the ED. da2 Signatures: Dispatcher [employer] EDMS Elana Palma, RN RN aa1 Werner Day PA PA Sarina Bailey ds1 Saúl Billingsley RN RN jl7 Darian Herrera RN RN da2
[2018-12-09 09:12] VITALS: BP 115/62; TEMP 99; O2SAT 100
[2018-12-09] MEDS ORDERED: IPRATROPIUM BROM 0.5MG/2.5ML ONE (10:57)
[2018-12-09] MEDS ORDERED: Levofloxacin500mg IV 500 MG/100 ML BAG IV ONE (10:57)
[2018-12-09] MEDS ORDERED: dexAMETHasone 10 MG/ML VIAL ONE (10:57)
[2018-12-09] MEDS ORDERED: LEVALBUTEROL 1.25 MG/3 ML NEB ONE (10:57)
[2018-12-09] MEDS ORDERED: METHYLPREDNISOLONE 125 MG INJ ONE (10:57)
== END 2018-12-09 09:06 | disposition home or self-care (01) ==
LOC: ER 06:35
DX: O26.891 Other specified pregnancy related conditions, first trimester (principal); O99.331 Smoking (tobacco) complicating pregnancy, first trimester; W55.03XA Scratched by cat, initial encounter; Y93.89 Activity, other specified; Y92.9 Unspecified place or not applicable; Z88.5 Allergy status to narcotic agent; Z3A.01 Less than 8 weeks gestation of pregnancy
CPT/HCPCS: 99284; J1100; J2930

== ENCOUNTER 2018-12-28 17:18 | Emergency (ER) | payer OTHER ==
[2018-12-28] MEDS ORDERED: FAMOTIDINE 20 MG/2 ML VIAL IV ONE (18:18)
[2018-12-28] MEDS ORDERED: NA CHLORIDE 0.9% 1,000 ML ONE (18:18)
[2018-12-28] MEDS ORDERED: ONDANSETRON 4 MG/2 ML VIAL ONE (18:18)
[2018-12-28 18:47] LABS: Absolute Lymphocytes (CBC) 3.7 K/uL (0.7-4.9); Basophils % 0.4 % (0-1.3); Hematocrit 39.8 % (36.0-45.0); Lymphocytes % 30.9 % (15.3-44.8); MPV 9.3 fL (7.6-11.3); RBC Red Blood Cell Count 4.51 M/uL (3.86-4.86)
[2018-12-28 18:57] LABS: Urine Blood NEGATIVE (NEG); Urine Glucose NEGATIVE (NEG); Urine Protein NEGATIVE (NEG); Urine pH 7.5 (5.0-7.0)
[2018-12-28 19:00] LABS: Urine Amorphous Sediment 2+ /HPF (NONE SEEN); Urine Bacteria <20 /HPF (<20); Urine Culture Reflex Order NOT NEEDED; Urine RBC <5 /HPF (NONE SEEN)
[2018-12-28 19:52] LABS: ALT/SGPT 28 U/L (12-78); AST/SGOT 10 U/L (15-37); Albumin 4.1 g/dL (3.4-5.0); Alkaline Phosphatase 60 U/L (45-117); BUN Blood Urea Nitrogen 8 mg/dL (7-18); Bicarbonate 27 mmol/L (21-32); Bilirubin Direct 0.2 mg/dL (0-0.2); Bilirubin Total 0.6 mg/dL (0.2-1.0); Glucose Level 79 mg/dL (74-106); HCG, Quantitative 51031 mIU/mL (1-3); Lipase 76 U/L (73-393); Potassium 3.5 mmol/L (3.5-5.1); Protein, Total 7.6 g/dL (6.4-8.2); Sodium Level 138 mmol/L (136-145)
--- NOTE | 2018-12-28 20:22 | RAD REPORT ---
EXAM DESCRIPTION: US - Transvaginal OB - 12/28/2018 8:14 pm CLINICAL HISTORY: ABD PAIN COMPARISON: <Comparisons> FINDINGS: A single gestational sac is seen within the uterus. The shape of the sac is within normal limits for gestational age. Within the sac is a single pole with crown-rump length of 2.7 cm, c orrelating to estimated gestational age of 9 weeks 1 day. Estimated date of delivery is 08/01/2019. Heart rate is 164 BPM. The placenta is not yet developed due to early gestational age. The maternal adnexa and right ovary are within normal limits. The left ovary obscured by bowel gas. N ormal Doppler blood flow was demonstrated to the right ovary. IMPRESSION: Single live early intrauterine gestation with estimated gestational age of 9 weeks 1 day , ASTRID 08/01/2019.
--- NOTE | 2018-12-28 21:18 | EDPHYS ---
Physician Documentation [facility] Name: Radha Toth Age: 28 yrs Sex: Female : 1990 Arrival Date: 12/28/2018 Time: 17:21 Bed 16 Private MD: ED Physician Avni Casper HPI: 12/28 18:20 This 28 yrs old Female presents to ER via Ambulatory with complaints of cp Abdominal Pain - 10 wks preg, Vomiting. 18:20 The patient presents with abdominal pain. cp 18:20 Onset: The symptoms/episode began/occurred today. The symptoms do not radiate. cp Associated signs and symptoms: Pertinent positives: nausea, , vomiting, Pertinent negatives: blood in stools, chest pain, constipation, diarrhea, dysuria, fever, vomiting blood, vaginal bleeding. 18:20 The symptoms are described as constant. cp 18:20 Modifying factors: The symptoms are alleviated by nothing, the symptoms are aggravated cp by drinking, food. Severity of pain: in the emergency department the pain is a 5 / 10. MUSIC AGENT: 17:22 3, 2, LMP 10/22/2018 la1 Historical: - Allergies: 17:23 Codeine (Anaphylaxis); la1 - PMHx: 17:23 acute stroke years ago; angioedema, allergic reactions multiple; la1 - Immunization history:: Adult Immunizations up to date. - Social history:: Smoking status: Patient uses tobacco products, smokes one-half pack cigarettes per day. - Ebola Screening: : No symptoms or risks identified at this time. ROS: 18:30 Constitutional: Positive for poor PO intake, Negative for body aches, chills, fever. cp 18:30 Eyes: Negative for injury, pain, redness, and discharge. cp 18:30 ENT: Negative for drainage from ear(s), ear pain, sore throat, difficulty swallowing, difficulty handling secretions. 18:30 Neck: Negative for pain with movement, pain at rest, stiffness, swollen nodes. 18:30 Cardiovascular: Negative for chest pain, palpitations. 18:30 Respiratory: Negative for cough, shortness of breath, wheezing. 18:30 Abdomen/GI: Positive for abdominal pain, nausea, vomiting, Negative for diarrhea, constipation, hematemesis, black/tarry stool, rectal bleeding. 18:30 Back: Negative for pain at rest, pain with movement, radiated pain. 18:30 Skin: Negative for rash. 18:30 Neuro: Negative for altered mental status, headache, weakness. 18:30 All other systems are negative. Exam: 18:35 Constitutional: The patient appears in no acute distress, alert, awake, non-toxic, well cp developed, well nourished. 18:35 Head/Face: Normocephalic, atraumatic. cp 18:35 Eyes: Periorbital structures: appear normal, Pupils: equal, round, and reactive to light and accomodation, Conjunctiva: normal, no exudate, no injection, Sclera: no appreciated abnormality, Lids and lashes: appear normal, bilaterally. 18:35 ENT: External ear(s): are unremarkable, Ear canal(s): are normal, clear, TM's: are normal, no evidence of bulging, no erythema, Nose: is normal, Mouth: Lips: moist, Oral mucosa: pink and intact, moist, Posterior pharynx: is normal, airway is patent, no erythema, no exudate. 18:35 Neck: ROM/movement: is normal, is supple, without pain, no range of motions limitations, no nuchal rigidity. 18:35 Chest/axilla: Inspection: normal, Palpation: is normal, no crepitus, no tenderness. 18:35 Cardiovascular: Rate: normal, Rhythm: regular. 18:35 Respiratory: the patient does not display signs of respiratory distress, Respirations: normal, no use of accessory muscles, no retractions, no splinting, no tachypnea, Breath sounds: are clear throughout, no decreased breath sounds, no stridor, no wheezing. 18:35 Abdomen/GI: Inspection: abdomen appears normal, Bowel sounds: active, all quadrants, Palpation: soft, in all quadrants, mild abdominal tenderness, in all quadrants, voluntary guarding, is not appreciated. 18:35 Back: pain, is absent, ROM is normal. 18:35 Skin: no rash present. 18:35 Neuro: Orientation: to person, place \T\ time. Mentation: is normal. Vital Signs: 17:22 BP 131 / 62; Pulse 84; Resp 16; Temp 97.6; Pulse Ox 100% on R/A; la1 19:29 BP 117 / 52; Pulse 60; Resp 18; Pulse Ox 99% on R/A; wh 21:11 BP 105 / 55; Pulse 72; Resp 18; Pulse Ox 98% on R/A; wh MDM: 18:04 Patient medically screened. cp 18:45 Differential diagnosis: appendicitis, cholecystitis, Cholelithiasis, Ectopic , cp gastritis, pancreatitis, urinary tract infection, dehydration. 21:16 Data reviewed: vital signs, nurses notes, lab test result(s), radiologic studies, cp ultrasound. 21:16 Counseling: I had a detailed discussion with the patient and/or guardian regarding: the cp historical points, exam findings, and any diagnostic results supporting the discharge/admit diagnosis, lab results, radiology results, the need for outpatient follow up, an OB/Gyne specialist, to return to the emergency department if symptoms worsen or persist or if there are any questions or concerns that arise at home. Response to treatment: the patient's symptoms have markedly improved after treatment, VSS. No vomiting observed while in ED and symptoms improved. Will discharge to home for continued monitoring. US positive for IUP. 12/28 18:11 Order name: Basic Metabolic Panel; Complete Time: 20:01 12/28 18:11 Order name: CBC with Diff; Complete Time: 19:26 12/28 20:27 Interpretation: Normal except: WBC 11.9. 12/28 18:11 Order name: Creatinine for Radiology; Complete Time: 19:26 12/28 18:11 Order name: Hepatic Function; Complete Time: 20:01 12/28 18:11 Order name: Lipase; Complete Time: 20:01 12/28 18:11 Order name: Urine Microscopic Only; Complete Time: 19:26 12/28 18:11 Order name: IV Saline Lock; Complete Time: 18:47 12/28 18:11 Order name: Beta hcg; Complete Time: 20:01 12/28 18:48 Order name: Urine Dipstick--Ancillary (enter results); Complete Time: 19:26 [facility] 12/28 18:48 Order name: Urine --Ancillary (enter results); Complete Time: 19:26 [facility] 12/28 19:28 Order name: US Transvaginal Ob; Complete Time: 20:27 12/28 18:11 Order name: Labs collected and sent; Complete Time: 18:48 12/28 18:11 Order name: Urine Dipstick-Ancillary (obtain specimen); Complete Time: 18:47 cp 12/28 20:28 Order name: PO challenge; Complete Time: 21:02 cp Administered Medications: 18:38 Drug: NS 0.9% 1000 ml Route: IV; Rate: 1 bolus; Site: left antecubital; rb1 19:39 Follow up: Response: No adverse reaction; IV Status: Completed infusion wh 18:38 Drug: Zofran 4 mg Route: IVP; Site: left antecubital; rb1 19:39 Follow up: Response: No adverse reaction; Nausea is decreased wh 18:38 Drug: Pepcid 20 mg Route: IVP; Site: left antecubital; rb1 19:42 Follow up: Response: No adverse reaction Disposition: 12/28/18 21:17 Discharged to Home. Impression: Nausea and vomiting, related conditions, unspecified, first trimester. - Condition is Stable. - Discharge Instructions: Abdominal Pain During , First Trimester of . - Prescriptions for Diclegis 10- 10 mg Oral tablet,delayed release (DR/EC) - take 1 tablet by ORAL route 3-4 times daily As needed and 2 tablets at bedtime; 60 tablet. - Medication Reconciliation Form, Thank You Letter, Antibiotic Education, Prescription Opioid Use, Work release form form. - Follow up: Private Physician; When: 1 - 2 days; Reason: Recheck today's complaints. - Problem is new. - Symptoms have improved. Addendum: 12/31/2018 00:43 Co-signature as Attending Physician, Avni Casper MD. r n Signatures: Dispatcher [employer] EDLA Avni Casper MD MD rn Attema, Lee RN JOSUÉ laDaniel Chang PA PA cp Barber, Rebecca, RN RN rb1 Anna Bautista Corrections: (The following items were deleted from the chart) 12/28 21:02 18:11 FHT's ordered. [facility] 21:30 21:17 12/28/2018 21:17 Discharged to Home. Impression: Nausea and vomiting; wh related conditions, unspecified, first trimester. Condition is Stable. Forms are Medication Reconciliation Form, Thank You Letter, Antibiotic Education, Prescription Opioid Use. Follow up: Private Physician; When: 1 - 2 days; Reason: Recheck today's complaints. Problem is new. Symptoms have improved. cp 12/29 18:36 12/28 18:20 The patient presents with abdominal pain in the epigastric area, cp cp
--- NOTE | 2018-12-28 21:18 | ER ---
Nurse's Notes Formerly [facility] Name: Radha Toth Age: 28 yrs Sex: Female : 1990 Arrival Date: 12/28/2018 Time: 17:21 Bed 16 Private MD: Diagnosis: Nausea and vomiting; related conditions, unspecified, first trimester Presentation: 12/28 17:22 Presenting complaint: Patient states: Vomiting for the last couple days and now sharp la1 PAZ abd pain. Pt about 10 weeks . Transition of care: patient was not received from another setting of care. Onset of symptoms was December 28, 2018. Risk Assessment: Do you want to hurt yourself or someone else? Patient reports no desire to harm self or others. Initial Sepsis Screen: Does the patient meet any 2 criteria? No. Patient's initial sepsis screen is negative. Does the patient have a suspected source of infection? No. Patient's initial sepsis screen is negative. Care prior to arrival: None. 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 - Social history:: Smoking status: Patient uses tobacco products, smokes one-half pack cigarettes per day. - Ebola Screening: : No symptoms or risks identified at this time. Screenin:26 Abuse screen: Denies threats or abuse. Nutritional screening: No deficits noted. rb1 Tuberculosis screening: No symptoms or risk factors identified. Fall Risk None identified. Assessment: 17:26 General: Appears in no apparent distress. comfortable, Behavior is calm, cooperative, rb1 Denies fever. General: Reports being 10 weeks .. Pain: Complains of pain in right upper quadrant and right lower quadrant Pain currently is 5 out of 10 on a pain scale. at worst was 10 out of 10 on a pain scale. Pain began today. Neuro: Level of Consciousness is awake, alert, obeys commands, Oriented to person, place, time, situation. Cardiovascular: Capillary refill < 3 seconds is brisk in bilateral fingers. Respiratory: Airway is patent Respiratory effort is even, unlabored, Respiratory pattern is regular, symmetrical. GI: Bowel sounds present X 4 quads. Abd is soft X 4 quads Reports nausea, vomiting, since x 2 days. : Denies discharge, vaginal bleeding, vaginal itching. Derm: Skin is pink, warm \T\ dry. 18:25 Reassessment: Patient appears in no apparent distress at this time. No changes from rb1 previously documented assessment. 19:29 Reassessment: Patient appears in no apparent distress at this time. Patient and/or family updated on plan of care and expected duration. Pain level reassessed. Patient is alert, oriented x 3, equal unlabored respirations, skin warm/dry/pink. FHT attempted with no success notified provider. 20:50 Reassessment: Patient appears in no apparent distress at this time. No changes from wh previously documented assessment. Patient and/or family updated on plan of care and expected duration. Pain level reassessed. Patient is alert, oriented x 3, equal unlabored respirations, skin warm/dry/pink. Pt able to tolerate PO challenge Patient states feeling better. Patient states symptoms have improved. Vital Signs: 17:22 BP 131 / 62; Pulse 84; Resp 16; Temp 97.6; Pulse Ox 100% on R/A; la1 19:29 BP 117 / 52; Pulse 60; Resp 18; Pulse Ox 99% on R/A; wh 21:11 BP 105 / 55; Pulse 72; Resp 18; Pulse Ox 98% on R/A; wh ED Course: 17:21 Patient arrived in ED. as 17:22 Triage completed. la1 17:23 Arm band placed on right wrist. la1 17:26 Patient has correct armband on for positive identification. Bed in low position. Call rb1 light in reach. Side rails up X 1. Pulse ox on. NIBP on. Warm blanket given. 17:40 Daniel De La Rosa PA is PHCP. cp 17:40 Avni Casper MD is Attending Physician. cp 17:46 Felicity Alejo, RN is Primary Nurse. rb1 18:45 Inserted saline lock: 22 gauge in left antecubital area, using aseptic technique. Blood wh collected. By Felicity MOSES. 20:14 US Transvaginal Ob In Process Unspecified. EDMS 21:28 No provider procedures requiring assistance completed. IV discontinued, intact, bleeding controlled, No redness/swelling at site. Administered Medications: 18:38 Drug: NS 0.9% 1000 ml Route: IV; Rate: 1 bolus; Site: left antecubital; rb1 19:39 Follow up: Response: No adverse reaction; IV Status: Completed infusion 18:38 Drug: Zofran 4 mg Route: IVP; Site: left antecubital; rb1 19:39 Follow up: Response: No adverse reaction; Nausea is decreased 18:38 Drug: Pepcid 20 mg Route: IVP; Site: left antecubital; rb1 19:42 Follow up: Response: No adverse reaction Outcome: 21:17 Discharge ordered by MD. cp 21:29 Discharged to home ambulatory, with family. 21:29 Condition: stable 21:29 Discharge instructions given to patient, family, Instructed on discharge instructions, follow up and referral plans. medication usage, POC abd pain in Demonstrated understanding of instructions, follow-up care, medications, POC Prescriptions given X 1. 21:30 Patient left the ED. Signatures: Dispatcher [employer] EDMS Ayanna Cheung Lee, RN RN la1 Daniel De La Rosa PA PA cp Barber, Rebecca, RN RN rb1 Anna Bautista Corrections: (The following items were deleted from the chart) 21:11 19:29 BP 117 / 52; Pulse 50bpm; Resp 18bpm; Pulse Ox 99% RA; [facility]
[2018-12-28 22:41] VITALS: TEMP 97.6
[2018-12-28 22:43] VITALS: BP 105/55; O2SAT 98
--- OUTSIDE RECORDS SUMMARY | 2019-01-04 20:24 | XMS REPORT ---
:1990 [facility] [address] [place] [address] Dr. Pineda [address] [place] [id number] Care Team Providers Name Role Phone Unavailable Unavailable Unavailable Problems This patient has no known problems. Allergies, Adverse Reactions, Alerts This patient has no known allergies or adverse reactions. Medications This patient has no known medications.
== END 2018-12-28 21:30 | disposition home or self-care (01) ==
LOC: ER 17:18
DX: O26.891 Other specified pregnancy related conditions, first trimester (principal); R11.2 Nausea with vomiting, unspecified; Z88.6 Allergy status to analgesic agent; F17.210 Nicotine dependence, cigarettes, uncomplicated
CPT/HCPCS: 96361; 85025; 80048; 36415; 81025; 80076; 84702; 83690; 76817; 96375; 96374; 99284; J7030; J2405; 81003; 81015

== ENCOUNTER 2019-07-20 14:16 | Inpatient (IN) | payer OTHER ==
--- OUTSIDE RECORDS SUMMARY | 2019-07-20 14:18 | XMS REPORT ---
:1990 Author Organization [facility] t Address [address] [place] [address] Care Team Providers Name Role Phone Jovi Hill Attending Clinician Doctor Unassigned, Name Attending Clinician Unavailable Storm GRIFFITHS Attending Clinician Visit, Nurse Attending Clinician Unavailable Storm GRIFFITHS Admitting Clinician Problems This patient has no known problems. Allergies, Adverse Reactions, Alerts This patient has no known allergies or adverse reactions. Medications This patient has no known medications. Procedures This patient has no known procedures. Encounters Start End Encounter Admission Attending Care Care Encounter Source Date/Time Date/Time Type Type Clinicians Facility Department ID 2019-06-02 2019-06-02 Emergency Jarad [facility] [id number] 09:50:23 10:31:00 Bob Edwards [id number] [place] [id number] [place] [id number] 2019-06-02 2019-06-02 Orders Doctor [place] [id number] 00:00:00 00:00:00 Only UnassignedTRENA [id number] [place] [facility] [id number] 2019-03-20 2019-03-20 [facility] [id number] 21:37:00 23:15:00 Encounter Isidoro Grace [id number] [place] [id number] [place] [id number] 2018-10-15 2018-10-15 Nurse Visit, [facility] [id number] 13:28:54 13:47:57 Visit [facility] REEL OPERATOR [id number] Nurse [facility] [id number] MATERNAL [id number] & CHILD [address] [place] [address] 2018-10-15 2018-10-15 Orders Doctor AICHA [id number] 00:00:00 00:00:00 Only Unassigned, TRENA [id number] [place] [facility] [id number] Results This patient has no known results.
[2019-07-20] MEDS ORDERED: miSOPROStoL 100 MCG TAB ONE ×3 (14:46→20:56)
[2019-07-20] MEDS ORDERED: PENICILLIN G POT 5 MU/100 ML VIAL IV ONE (14:54)
[2019-07-20] MEDS ORDERED: Ringers Lactate 1,000 ML IV PRN (14:54)
[2019-07-20] MEDS ORDERED: BUTORPHANOL 1 MG/ML INJ IV PRN (14:54)
[2019-07-20] MEDS ORDERED: PROMETHAZINE INJ 25 MG/ML AMP IM PRN (14:54)
[2019-07-20] MEDS ORDERED: ZOLPIDEM TARTRATE 10 MG TABLET PO PRN (14:58)
[2019-07-20] MEDS ORDERED: Ringers Lactate 1,000 ML IV SCH (15:00)
[2019-07-20 15:29] LABS: Absolute Lymphocytes (CBC) 2.9 K/uL (0.7-4.9); Basophils % 0.3 % (0-1.3); Lymphocytes % 21.7 % (15.3-44.8); MPV 9.4 fL (7.6-11.3); Urine Appearance CLOUDY; Urine Bilirubin NEGATIVE (NEG); Urine Blood NEGATIVE (NEG); Urine Color YELLOW; Urine Glucose NEGATIVE (NEG); Urine Protein NEGATIVE (NEG); Urine Specific Gravity 1.015 (1.005-1.030); Urine Urobilinogen 0.2 mg/dL (0.2-1.0); Urine pH 6.5 (5.0-7.0)
[2019-07-20 15:45] VITALS: BMI 32.8
[2019-07-20 15:47] LABS: Urine Microscopic Reflex ORDER UMIC
[2019-07-20 15:48] LABS: Urine Bacteria >50 /HPF (<20); Urine RBC NONE SEEN /HPF (NONE SEEN)
[2019-07-20 15:49] LABS: Urine Culture Reflex Order NOT NEEDED
[2019-07-20] MEDS ORDERED: PENICILLIN 2.5 MU in NA CHLORIDE 0.9% 100 ML IV SCH (19:00)
[2019-07-20 22:42] LABS: RPR (Rapid Plasma Reagin) NON-REACT (NON-REACT)
[2019-07-21] MEDS ORDERED: PENICILLIN G POT 5 MU/VIAL IV ONE (03:42)
[2019-07-21] MEDS ORDERED: NA CHLORIDE 0.9% 100 ML IV ONE (03:43)
[2019-07-21] MEDS ORDERED: OXYTOCIN/LR 20 UNIT/1,000 ML BAG IV ONE (04:36)
[2019-07-21] MEDS ORDERED: ROPIVACAINE HCL 100 ML IV PRN (05:57)
[2019-07-21] MEDS ORDERED: ROPIVACAINE HCL 0.2% 20ML AMP IV ONE (05:59)
[2019-07-21] MEDS ORDERED: ROPIVACAINE HCL 100 ML IV ONE (06:13)
[2019-07-21] MEDS ORDERED: ROPIVACAINE HCL 0 ML ONE (06:13)
[2019-07-21] MEDS ORDERED: FENTANYL CITR 100 MCG/2 ML ONE (06:54)
[2019-07-21] MEDS ORDERED: LIDOCAINE 1% MPF 30 ML VIAL ONE (07:55)
[2019-07-21] MEDS ORDERED: LIDOCAINE 1% MPF 5 ML VIAL ONE (07:55)
[2019-07-21] MEDS ORDERED: METHYLERGONOVINE 0.2MG/ML AMP IM ONE (07:55)
[2019-07-21] MEDS ORDERED: ACETAMINOPHEN 500 MG TAB PO PRN (08:09)
[2019-07-21] MEDS ORDERED: BISACODYL 10 MG RECTAL SUPP RC PRN (08:09)
[2019-07-21] MEDS ORDERED: DIPHENHYDRAMINE 25 MG TAB/CAP PO PRN (08:09)
[2019-07-21] MEDS ORDERED: DOCUSATE NA/SENNA CONC 1 TAB PO PRN (08:09)
[2019-07-21] MEDS ORDERED: Oxycodone HCl/Acetaminophen 1 TAB TAB PO PRN ×2 (08:09)
[2019-07-21] MEDS ORDERED: OXYTOCIN/LR 20 UNIT/1,000 ML BAG IV SCH (09:00)
--- NOTE | 2019-07-21 18:46 | OP ---
Surgeon: Misael Burton MD History: A 28-year-old 3, para 0, 38 weeks and 3 days on admission. Had been seen by Dr. Roby kennedy, high-grocery specialist [facility] for extensive total body rash. She had a sim ilar rash years ago, ended up in intensive care, she said, and they never figured out the etiology of the rash. Dr. Warren recommended delivery. Cytotec 50 mcg inserted yesterday at approximately 3 p.m . The second dose approximately 5-6 hours later. After second dose, patient experienced spontaneous rupture of membranes, clear fluid, was 1 cm, -1 station on admission. After rupture of membranes, sh e noted to be 2 cm, 70-80% effaced, and in significant discomfort. Requested epidural anesthesia whi ch was administered approximately an hour or so later. On my initial exam, patient was 9+ cm, 100%, +1 station, second stage of less than 30 minutes. Spontaneous vaginal delivery of a 6 pounds 4 ounce s female. Apgars 9 and 9. Very small first-degree laceration repaired with 2-0 chromic. Local infi ltration for supplementation. Schultze delivery of the placenta, which inspected and noted to be int act and normal. Estimated blood loss 300 mL. The patient was beta strep positive. Received 2 doses of penicillin during the labor. Tolerated all procedures well. Rh positive, immune to Rubella. Final Diagnoses: Intrauterine gestation, 38 weeks 4 days, on delivery 38 weeks 3 days, Cytotec for l abor induction. Epidural anesthesia. Penicillin prophylaxis. Rash of unknown etiology. Consultati on with high-grocery specialist, Dr. Warren, [facility]. NBC/POLI Voice ID: [id number] Report ID: [id number]
[2019-07-21] MEDS: IBUPROFEN 600 MG TAB PO PRN (20:32)
[2019-07-22] MEDS: IBUPROFEN 600 MG TAB PO PRN (05:10)
[2019-07-22 07:32] VITALS: BP 125/72; TEMP 97.4
--- NOTE | 2019-07-22 08:42 | PREOPHP ---
Date of Admission: 07/20/2019 28-year-old 3, para 0, followed her antepartum without initial complications, Rh positive, im mune to Rubella. Positive beta strep screen. Patient was noted to have an onset of a generalized ra sh. Said she had same type of rash years ago and ended up in the intensive care and they never figur ed out what the rash was. Sent to Dr. Warren, high-information security risk analyst [facility], who recommended delivery. Patient was brought in yesterday and Cytotec 50 mcg was inserted, another 50 mcg is inserted 6 hours after that, then spontaneous rupture of membranes. Patient was started on oxytocin and also penicill in prophylaxis. At 2 cm and 80%, requested epidural anesthesia, which has been accomplished, now pat ient is comfortable. Exam show patient is now 9.5, 100%, +1 station. Scalp electrode has been place d. I anticipate delivery relatively soon. AMBROSE/POLI Voice ID: [id number]
--- NOTE | 2019-07-22 09:31 | DS ---
Hospital Course: Radha Toth is a 28-year-old, 3, para 0 was seen in consultation with Dr. Warren, high-risk modeler, for severe body rash, unknown etiology which put her in ICU she has had about 10 years ago. Etiology of this was never discovered. Patient had been given Solu-Medrol during latter part of this and seemed to respond slightly, but Dr. Warren recommended deliv john. She had Cytotec inserted twice and had some spontaneous rupture of membranes, then went to a ry active labor. Delivered at 38 weeks and 4 days of a 6 pounds 4 ounces female, Apgars 9 and 9. Ep idural anesthesia and local for supplementation. First degree laceration repaired with 2-0 chromic. Schultze delivery of the placenta, was inspected and 300 mL blood loss or less. Penicillin prophyla xis x2 as she was beta-strep positive. , afebrile, ambulating and voiding. Lochia is norm al. She has been taking Motrin for analgesia and minimal amount if that has no post epidural problem s. She has not received her Tdap during the and is suggest she get that before she goes, b ut that is of course her decision. She will be dismissed to report back to my office in 6 weeks for followup, to report any temperature elevation of 100 degrees or greater, severe pain, heavy bleeding, or any other type of abnormalities. Requests no analgesics on dismissal. Final Diagnoses: Intrauterine gestation, 38 weeks 4 days, Cytotec insertion, delivery at 38 weeks 4 days, term 6 pounds 4 ounces female. Apgars 9 and 9. 300 cc blood loss. Schultze delivery of the p lacenta. Penicillin prophylaxis. Tdap offered. Extensive body rash with consultation with Dr. Kristyn thomas, high-risk modeler [facility]. NBC/MODL Voice ID: [id number] Report ID: [id number]
[2019-07-24 02:13] LABS: HBsAG Nonreactive (Nonreactive)
== END 2019-07-22 11:40 | disposition home or self-care (01) | DRG 807 ==
LOC: L&D 14:16 → 2ND-WCNRSY 14:38 → 2ND-WC 15:10
PROVIDERS: ADMIT Specialist; ATTEND Specialist
PROC: 3E0P7VZ Introduction of Hormone into Female Reproductive, Via Natural or Artificial Opening (ICD-10-PCS; principal; 2019-07-21)
PROC: 10E0XZZ Delivery of Products of Conception, External Approach (ICD-10-PCS; 2019-07-21)
PROC: 0HQ9XZZ Repair Perineum Skin, External Approach (ICD-10-PCS; 2019-07-21)
DX: O99.824 Streptococcus B carrier state complicating childbirth (principal); Z37.0 Single live birth; Z3A.38 38 weeks gestation of pregnancy; R21 Rash and other nonspecific skin eruption; O70.0 First degree perineal laceration during delivery
CPT/HCPCS: 36415; 81003; 81015; 85025; 86592; 86901; 87340; J0595; J2210; J2550; J2590; J2795; J3010; J7120

== ENCOUNTER 2021-06-06 22:42 | Inpatient (IN) | payer OTHER ==
--- OUTSIDE RECORDS SUMMARY | 2021-06-06 22:44 | XMS REPORT | Continuity of Care Document ---
:1990 Author Organization [facility] t Address [address] [place] [address] Care Team Providers Name Role Phone ABHAY Attending Clinician Unavailable ANDREA Attending Clinician Unavailable GEOVANI PALACIOS Attending Clinician Unavailable Jovi Hill Attending Clinician Doctor Unassigned, Name Attending Clinician Unavailable Storm GRIFFITHS Attending Clinician Visit, Nurse Attending Clinician Unavailable Carmen Teixeira Attending Clinician Storm GRIFFITHS Admitting Clinician Payers Payer Name Policy Type Policy Number Effective Date Expiration Date [facility] [id number] 2018 [facility] MEDICAID 00:00:00 Problems Condition Condition Condition Status Onset Resolution Last Treating Co mments Source Name Details Category Date Date Treatment Clinician Date Supervisio Supervisio Disease Active 2018-02 U nivers n of high n of high 0-01 ity of risk risk 00:00: [place] , , 00 Me dical antepartum antepartum Br anch Current Current Disease Active 2018-02 Univers 0-01 ity of with with 00:00: [place] history of history of 00 Me dical spontaneou spontaneou Br anch s s during during first first trimester trimester of prior of prior Primigravi Primigravi Disease Active 2018-02 U nivers da in da in 0- ity of first first 00:00: [place] trimester trimester 00 [facility] Nausea and Nausea and Disease Active 2018-02 U nivers vomiting vomiting 0- ity of during during 00:00: [place] [address] [facility] prior to prior to Branch 22 weeks 22 weeks gestation gestation Tobacco Tobacco Disease Active 2018-02 Univers use use 0- ity of disorder disorder 00:00: [place] 00 [facility] BMI BMI Disease Active 2018-02 Univers 28.0-28.9, 28.0-28.9, 0- it y of adult adult 00:00: [place] 00 [facility] No known No known Disease Unive rs active active ity of problems problems [facility] Allergies, Adverse Reactions, Alerts Allergy Allergy Status Severity Reaction(s) Onset Inactive Treating Comm ents Source Name Type Date Date Clinician Adhesive Propensi Active Rash 2018-02 Needs Univer s Tape-Tasha ty to 1-10 Paper ity of icones adverse 00:00: Tape Only [place] reaction 00 [facility] ADHESIVE DRUG Active Rash 2018-02 Univers TAPE-TASHA 1-10 ity of ICONES 00:00: [place] 00 [facility] Codeine Propensi Active Swelling Unive rs ty to 6-26 ity of adverse 00:00: [place] reaction 00 [facility] CODEINE DRUG Active High Swelling Univers INGREDI 6-26 ity of 00:00: [place] 00 [facility] Social History Social Habit Start Date Stop Date Quantity Comments Source ASSERTION 2018-11-05 University of 00:00:00 [facility] History of tobacco Cigarette Smoker University of use [facility] Sex Assigned At Universit y of [facility] Cigarettes smoked 2019-03-20 2019-03-20 Univers ity of current (pack per 00:00:00 00:00:00 [facility] ) - Reported Branch Alcohol intake 2019-03-20 2019-03-20 University of 00:00:00 00:00:00 [facility] Tobacco Comment 2018-11-25 2018-11-25 3 ciggs a day Univer sity of 00:00:00 00:00:00 [facility] Smoking Status Start Date Stop Date Source Current every day smoker 2019-03-20 00:00:00 Uni versity [facility] Unknown if ever smoked Universit y of [facility] Medications Ordered Filled Start Stop Current Ordering Indication Dosage Frequency Signature Comments Components Source Medication Medication Date Date Medication? Clinician (SIG) Name Name doxylamine- Yes [id number] Take 2 Univers pyridoxine, 1-02 tablets ity o f vit B6, 00:00: daily at [place] ([place] [address] bedtime. Medic al 10-10 mg If Branch per tablet symptoms are not adequately controlled , start taking 1 in the morning and 1 mid-aftern oon as well for a maximum of 4 tablets a day. proMETHazin Yes [id number] 25mg Take 1 Univers e 25 mg 1-02 tablet by ity of tablet 00:00: mouth [place] 00 every 6 Medical (six) Branch hours as needed for Nausea and Vomiting (N/V). doxylamine- Yes [id number] Take 2 Univers pyridoxine, 1-02 tablets ity o f vit B6, 00:00: daily at [place] ([facility] 00 bedtime. Medic al 10-10 mg If Branch per tablet symptoms are not adequately controlled , start taking 1 in the morning and 1 mid-aftern oon as well for a maximum of 4 tablets a day. proMETHazin Yes [id number] 25mg Take 1 Univers e 25 mg 1-02 tablet by ity of tablet 00:00: mouth [place] [address] every 6 Medical (six) Branch hours as needed for Nausea and Vomiting (N/V). doxylamine- Yes [id number] Take 2 Univers pyridoxine, 1-02 tablets ity o f vit B6, 00:00: daily at [place] ([facility]) 00 bedtime. Medic al 10-10 mg If Branch per tablet symptoms are not adequately controlled , start taking 1 in the morning and 1 mid-aftern oon as well for a maximum of 4 tablets a day. proMETHazin Yes [id number] 25mg Take 1 Univers e 25 mg 1-02 tablet by ity of tablet 00:00: mouth [place] [address] every 6 Medical (six) Branch hours as needed for Nausea and Vomiting (N/V). ibuprofen Yes [id number] 800mg Take 1 Univers 800 mg 6-26 [id number] tablet by ity of tablet 00:00: mouth [place] 00 every 8 Medical (eight) Branch hours. traMADOL 50 2019-0 Yes [id number] 50mg Take 1 Univers mg tablet 6-26 [id number] tablet by ity of 00:00: mouth [place] 00 every 6 Medical (six) Branch hours as needed for Pain (scale 4-6). ibuprofen 2019-0 Yes [id number] 800mg Take 1 Univers 800 mg 6-26 [id number] tablet by ity of tablet 00:00: mouth [place] 00 every 8 Medical (eight) Branch hours. traMADOL 50 2019-0 Yes [id number] 50mg Take 1 Univers mg tablet 6-26 [id number] tablet by ity of 00:00: mouth [place] 00 every 6 Medical (six) Branch hours as needed for Pain (scale 4-6). traMADOL 2019-0 Yes [id number] 50mg Take 1 Univers (ULTRAM) 50 5-31 [id number] tablet by i ty of mg tablet 00:00: mouth [place] 00 every 8 Medical (eight) Branch hours as needed for Pain (scale 4-6). traMADOL 2019-0 Yes [id number] 50mg Take 1 Univers (ULTRAM) 50 5-31 [id number] tablet by i ty of mg tablet 00:00: mouth [place] 00 every 8 Medical (eight) Branch hours as needed for Pain (scale 4-6). ibuprofen 2019-0 Yes [id number] 800mg Take 1 Univers 800 mg 3-25 [id number] tablet by ity of tablet 00:00: mouth [place] 00 every 8 Medical (eight) Branch hours. sulfamethox 2019-0 Yes [id number] 1{tbl} Take 1 Univers azole-trime 3-25 [id number] tablet by i ty of thoprim 00:00: mouth [place] 400-80 mg 00 every 12 Medica l per tablet (twelve) Branc h hours. ibuprofen 2019-0 Yes [id number] 800mg Take 1 Univers 800 mg 3-25 [id number] tablet by ity of tablet 00:00: mouth [place] 00 every 8 Medical (eight) Branch hours. sulfamethox 2019-0 Yes [id number] 1{tbl} Take 1 Univers azole-trime 3-25 [id number] tablet by i ty of thoprim 00:00: mouth [place] 400-80 mg 00 every 12 Medica l per tablet (twelve) Branc h hours. cetirizine Yes 20mg Take 2 Unive rs (ZYRTEC) 10 9-25 tablets by it y of mg tablet 00:00: mouth 2 00 (two) Medical times Branch daily. cetirizine Yes 20mg Take 2 Unive rs (ZYRTEC) 10 9-25 tablets by it y of mg tablet 00:00: mouth 2 [place] 00 (two) Medical times Branch daily. traMADOL 50 2016-02 Yes 50mg Take 1 Univ ers mg tablet 1-07 tablet by ity o f 00:00: mouth [place] 00 every 6 Medical (six) Branch hours as needed for Pain (scale 4-6). traMADOL 50 2016-02 Yes 50mg Take 1 Univ ers mg tablet 1-07 tablet by ity o f 00:00: mouth [place] 00 every 6 Medical (six) Branch hours as needed for Pain (scale 4-6). predniSONE Yes Take 2 Unive rs 20 mg 1-01 pills by ity of tablet 00:00: mouth [place] 00 daily for Medical 3 days Branch predniSONE Yes Take 2 Unive rs 20 mg 1-01 pills by ity of tablet 00:00: mouth [place] 00 daily for Medical 3 days Branch Vital Signs Vital Name Observation Time Observation Value Comments Source Systolic blood 2019-06-02 14:48:00 119 [facility]Hg[facility] [place] [facility] Diastolic blood 2019-06-02 14:48:00 67 mm[facility]Hg[facility] Heart rate 2019-06-02 14:48:00 100 /min [facility] Body temperature 2019-06-02 14:48:00 37.22 Precious [facility] Respiratory rate 2019-06-02 14:48:00 18 /min [facility] Body weight 2019-06-02 14:48:00 92.08 kg [facility] BMI 2019-06-02 14:48:00 30.87 kg/m2 [facility] Oxygen saturation in 2019-06-02 14:48:00 98 /min [facility] Arterial blood by [facility] Pulse oximetry Branch Systolic blood 2019-06-02 14:48:00 119 mm[Hg] Univer sity of pressure [place] [facility] Diastolic blood 2019-06-02 14:48:00 67 mm[Hg] Unive rsity of pressure [place] [facility] Heart rate 2019-06-02 14:48:00 100 /min Universi ty of [place] [facility] Body temperature 2019-06-02 14:48:00 37.22 Precious Univ ersity of [place] [facility] Respiratory rate 2019-06-02 14:48:00 18 /min Univ ersity of [place] [facility] Body weight 2019-06-02 14:48:00 92.08 kg Universi ty of [place] [facility] BMI 2019-06-02 14:48:00 30.87 kg/m2 Universi ty of [place] [facility] Oxygen saturation in 2019-06-02 14:48:00 98 /min University of Arterial blood by [facility] sharmila Pulse oximetry Branch Systolic blood 2019-03-21 04:19:00 128 mm[Hg] Univer sity of pressure [place] [facility] Diastolic blood 2019-03-21 04:19:00 57 mm[Hg] Unive rsity of pressure [place] [facility] Heart rate 2019-03-21 04:19:00 76 /min Universi ty of [place] [facility] Body temperature 2019-03-21 04:19:00 36.78 Precious Univ ersity of [place] [facility] Respiratory rate 2019-03-21 04:19:00 18 /min Univ ersity of [place] [facility] Body height 2019-03-21 04:19:00 172.7 cm Universi ty of [place] [facility] Body weight 2019-03-21 04:19:00 86.456 kg Universi ty of [place] [facility] BMI 2019-03-21 04:19:00 28.98 kg/m2 Universi ty of [place] [facility] Oxygen saturation in 2019-03-21 04:19:00 100 /min University of Arterial blood by [facility] Pulse oximetry Branch Systolic blood 2019-03-21 04:19:00 128 mm[Hg] Univer sity of pressure [place] [facility] Diastolic blood 2019-03-21 04:19:00 57 mm[Hg] Unive rsity of pressure [place] [facility] Heart rate 2019-03-21 04:19:00 76 /min Universi ty of [place] [facility] Body temperature 2019-03-21 04:19:00 36.78 Precious Univ ersity of [place] [facility] Respiratory rate 2019-03-21 04:19:00 18 /min Univ ersity of [place] [facility] Body height 2019-03-21 04:19:00 172.7 cm Universi ty of [place] [facility] Body weight 2019-03-21 04:19:00 86.456 kg Universi ty of [place] [facility] BMI 2019-03-21 04:19:00 28.98 kg/m2 Universi ty of [place] [facility] Oxygen saturation in 2019-03-21 04:19:00 100 /min University Arterial blood by [facility] Pulse oximetry Branch Systolic blood 2018-10-15 18:40:00 114 mm[Hg] Univer sity of pressure [place] [facility] Diastolic blood 2018-10-15 18:40:00 62 mm[Hg] Unive rsity of pressure [place] [facility] Heart rate 2018-10-15 18:40:00 62 /min Universi ty of [place] [facility] Body temperature 2018-10-15 18:40:00 37.06 Precious Univ ersity of [place] [facility] Respiratory rate 2018-10-15 18:40:00 14 /min Univ ersity of [place] [facility] Body height 2018-10-15 18:40:00 170.2 cm Universi ty of [place] [facility] Body weight 2018-10-15 18:40:00 85.049 kg Universi ty of [place] [facility] BMI 2018-10-15 18:40:00 29.37 kg/m2 Universi ty of [place] [facility] Systolic blood 2018-10-15 18:40:00 114 mm[Hg] Univer sity of pressure [place] [facility] Diastolic blood 2018-10-15 18:40:00 62 mm[Hg] Unive rsity of pressure [place] [facility] Heart rate 2018-10-15 18:40:00 62 /min Universi ty of [place] [facility] Body temperature 2018-10-15 18:40:00 37.06 Precious Univ ersity of [place] [facility] Respiratory rate 2018-10-15 18:40:00 14 /min Univ ersity of [place] [facility] Body height 2018-10-15 18:40:00 170.2 cm Universi ty of [place] [facility] Body weight 2018-10-15 18:40:00 85.049 kg Universi ty of [place] [facility] BMI 2018-10-15 18:40:00 29.37 kg/m2 Universi ty of [place] [facility] Procedures Procedure Date / Time Performed Performing Clinician [facility] e NOTICE OF PRIVACY 2019-06-02 14:24:24 Doctor Unassigned, No [facility] Name Medical Branch CONSENT/REFUSAL FOR 2019-06-02 14:24:08 Doctor Unassigned, No Un iversity of [place] DIAGNOSIS AND Name Medical Branch TREATMENT NOTICE OF PRIVACY 2019-03-21 03:39:46 Doctor Unassigned, No [facility] ASSIGNMENT OF BENEFITS 2019-03-21 03:38:57 Doctor Unassigned, No [facility] Medical Branch CONSENT/REFUSAL FOR 2019-03-21 03:38:43 Doctor Unassigned, No Un iversity of [place] DIAGNOSIS AND Name Medical [place] TREATMENT POCT TEST 2018-10-15 18:43:00 Radha Bynum Uni versity of [facility] PATIENT FINANCIAL 2018-10-15 18:05:04 Doctor Unassigned, No [facility] POLICY Name Medical [place] Encounters Start End Encounter Admission Attending Care Care Encounter Source Date/Time Date/Time Type Type Clinicians Facility Department ID 2020-12-22 Emergency [facility] [id number] [facility] 17:14:09 ity of [facility] 2020-09-11 2020-09-11 Emergency ABHAY, [facility] [id number] [place] 00:00:00 00:00:00 OBINNA 853 Method i 2020-06-09 2020-06-09 Outpatient PRIV PRIV [id number] 0-2 [facility] 01:28:00 01:28:00 [id number] Medica l 2019-10-07 2019-10-07 Emergency [facility], [facility] [id number] [place] 00:00:00 00:00:00 YOLANDA [address] 2019-08-03 2019-08-03 Emergency E SUZANNE, MHTW MHTW [id number] MHTW 16:33:00 17:59:00 SKINNY 2019-06-02 2019-06-02 Emergency [facility] [id number] [facility] 09:50:23 10:31:00 Bob Edwards [id number] i Kwame 4.2.7.2.686 [facility] [id number] [place] [address] Branch 2019-06-02 2019-06-02 Emergency [facility] [id number] 09:50:23 10:31:00 Bob B Grace [id number] [place] [id number] [place] [id number] [facility] 2019-06-02 2019-06-02 Orders Doctor AICHA [id number] Univers 00:00:00 00:00:00 Only Unassigned, TRENA [id number] ity of [place] [facility] 4.2.7.2.686 H[place] as [id number] [address] 2019-06-02 2019-06-02 Orders Doctor AICHA 1.2.840.114 [id number] 00:00:00 00:00:00 Only Unassigned, TRENA [id number] [place] [address]686 [id number] [facility] 2019-03-20 2019-03-20 [facility] [id number] [facility] 21:37:00 23:15:00 Encounter Is[place]oro [place] [id number] ity of [place] 4[place]2.7.2.686 [place] [id number] [address] 2019-03-20 2019-03-20 [facility] 1.2.840.114 [id number] 21:37:00 23:15:00 Encounter Isidoro Edwards [id number] [place] 4.2.7.2.686 [place] [id number] [facility] 2018-10-15 2018-10-15 Nurse Visit, Elvintabby Nurse [facility] 1.2 .840.114 [id number] [facility] 13:28:54 13:47:57 Visit Radha Bynum [facility] [employer] 350.1.13. 10 ity of [facility] 4.2.7.2.686 [place] as MATERNAL [id number] Med ical & CHILD [address] [place] [address] 2018-10-15 2018-10-15 Nurse Visit, [facility] 1.2.840.114 [id number] 13:28:54 13:47:57 Visit Jenise [facility] [employer] [id number] Nurse [facility] 4.2.7.2.686 MATERNAL [id number] & CHILD [address] [place] [address] 2018-10-15 2018-10-15 Orders Doctor AICHA 1.2.840.114 [id number] Univers 00:00:00 00:00:00 Only Unassigned, TRENA [id number] ity of [place] [facility] 4.2.7.2.686 [place] as [id number] [address] 2018-10-15 2018-10-15 Orders Doctor AICHA 1.2.840.114 [id number] 00:00:00 00:00:00 Only Unassigned, TRENA [id number] [place] [facility] 4.2.7.2.686 [id number] 2017-08-05 2017-08-07 Outpatient [facility] [id number] [address] [place] [address] 00:00:00 00:00:00 [facility] Results Test Description Test Time Test Comments Results Result Comments Source POCT TEST 2018-10-15 18:43:00 Test Item Value Reference Range Interpretation Comme nts POCT PREG (test code = 1605) Negative On board controls acceptable with C Line (test code = 3574) Yes POCT PREG LOT # (test code = 3575) POCT PREG TEST DATE (test code = 3576) [facility]
[2021-06-07] MEDS: Ringers Lactate 1,000 ML IV SCH ×2 (00:03→03:37)
[2021-06-07] MEDS ORDERED: CARBOPROST TROME 250 MCG/ML IM PRN (00:25)
[2021-06-07] MEDS ORDERED: METHYLERGONOVINE 0.2MG/ML AMP IM PRN (00:25)
[2021-06-07] MEDS ORDERED: BUTORPHANOL 1 MG/ML INJ IV PRN (00:25)
[2021-06-07] MEDS ORDERED: Ringers Lactate 1,000 ML IV PRN (00:25)
[2021-06-07] MEDS ORDERED: PROMETHAZINE INJ 25 MG/ML AMP IM PRN (00:25)
[2021-06-07 00:50] LABS: Absolute Lymphocytes (CBC) 3.3 K/uL (0.7-4.9); Lymphocytes % 23.7 % (15.3-44.8); MPV 9.2 fL (7.6-11.3); RBC Red Blood Cell Count 4.13 M/uL (3.86-4.86)
[2021-06-07 00:52] LABS: Urine Appearance CLEAR (Clear); Urine Bilirubin NEGATIVE (Negative); Urine Blood NEGATIVE (Negative); Urine Color YELLOW (Yellow); Urine Glucose NEGATIVE (Negative); Urine Protein NEGATIVE (Negative); Urine Urobilinogen 0.2 mg/dL (0.2-1.0)
[2021-06-07 01:12] LABS: Urine Microscopic Reflex NO UMIC
[2021-06-07 01:16] VITALS: BMI 34.4
[2021-06-07] MEDS ORDERED: OXYTOCIN/LR 20 UNIT/1,000 ML BAG IV SCH (04:00)
[2021-06-07] MEDS ORDERED: ROPIVACAINE HCL 0.2% 20ML AMP IV ONE (05:21)
[2021-06-07] MEDS ORDERED: FENTANYL CITR 100 MCG/2 ML IV ONE (05:21)
[2021-06-07] MEDS ORDERED: 0.2% ROPIVACAINE (200 MG/100 ML) BAG EP ONE (05:22)
[2021-06-07] MEDS ORDERED: LIDOCAINE 1% MPF 30 ML VIAL ONE (07:17)
[2021-06-07] MEDS ORDERED: BISACODYL 10 MG RECTAL SUPP RC PRN (08:02)
[2021-06-07] MEDS ORDERED: IBUPROFEN 600 MG TAB PO PRN (08:02)
[2021-06-07] MEDS ORDERED: ACETAMINOPHEN 500 MG TAB PO PRN (08:02)
[2021-06-07] MEDS ORDERED: Oxycodone HCl/Acetaminophen 1 TAB TAB PO PRN ×2 (08:02)
[2021-06-07] MEDS ORDERED: DOCUSATE NA/SENNA CONC 1 TAB PO PRN (08:02)
[2021-06-07] MEDS ORDERED: DIPHENHYDRAMINE 25 MG TAB/CAP PO PRN (08:02)
--- NOTE | 2021-06-07 09:06 | OP ---
Surgeon: Misael Burton MD Procedure In Detail: Radha Toth is a 30-year-old, 5, para 1, 3 miscarriages, 39 weeks, came in this morning. Initially received Stadol 1 mg IV, Phenergan 25 mg IM, at approximately 4 cm requested and received epidural anesthesia, which gave good effect. Went rapidly to complete. Secon d stage of approximately 15 to 20 minutes. Spontaneous vaginal delivery of an estimated 6-pound plus female, Apgars 9 and 9. Small first-degree laceration, repaired with 2-0 chromic. Preethi deliver y of the placenta, which was inspected and noted to be intact and normal. Mild uterine hypotonus. 0 .2 mg of Methergine IM as well as IV drip Pitocin and massage. Estimated blood loss 350 to 400 cc. Rh positive, immune to Rubella, negative strep. Tolerated all procedures well. Final Diagnoses: Term intrauterine , vaginal delivery, epidural anesthesia, mild uterine hy potonus. AMBROSE/MODL Voice ID: [id number] Report ID: [id number]
[2021-06-07] MEDS: OXYTOCIN/LR 20 UNIT/1,000 ML BAG IV SCH ×2 (09:09→17:00)
--- NOTE | 2021-06-07 09:09 | PREOPHP ---
Date of Admission: 06/06/2021 History Of Present Illness: Radha Toth is a 30-year-old, 2, para 1, 39 weeks gestation for induction. Had Stadol 1 mg IV, Phenergan 25 mg IM. Then at approximately 4 cm requested and re ceived epidural anesthesia. Apparently, the patient experienced spontaneous rupture of membranes as she seems wet and she is now 8+ to 9, 100% effaced, 0 station. FHTs normal, reactive. The patient i s comfortable, but she is aware of her contractions. Anticipate delivery relatively soon. She is on 10 milliunits of Pitocin. Rh positive, immune to Rubella. Negative strep screening. Family History: Mother with hypertension. Father with stroke and heart attack. Past Surgical History: The patient has had gallbladder removed and left knee surgery. Allergies: SHE IS ALLERGIC TO CODEINE. Medications: vitamins prior to admission. Social History: Does not smoke. Physical Examination: HEENT: Clear. Pupils equal, round, reactive to light and accommodation. Conjunctivae well perfused . No oral, lingual, or buccal lesions. Chest and Lungs: Clear. Heart: Without murmurs, thrills, heaves, or rubs. Breasts: Without masses. Extremities: Clear without edema, cyanosis, or clubbing. Pelvic Exam: As stated. Assessment And Plan: The patient is actually 5, para 1, 3 miscarriages, but delivery expecte d sometime relatively soon. AMBROSE/POLI Voice ID: [id number]
[2021-06-07] MEDS: METHYLERGONOVINE 0.2 MG TAB PO PRN ×4 (09:10→23:05)
[2021-06-07] MEDS ORDERED: NA CIT/CITRIC AC 30 ML ORAL UDC PO ONE (18:00)
[2021-06-07 22:57] LABS: RPR (Rapid Plasma Reagin) NON-REACT (NON-REACT)
[2021-06-08 08:17] VITALS: BP 122/60; TEMP 97.6
[2021-06-12 02:57] LABS: HBsAG Nonreactive (Nonreactive)
== END 2021-06-08 09:45 | disposition home or self-care (01) | DRG 807 ==
LOC: 2ND-WC 22:42
PROVIDERS: ADMIT Specialist; ATTEND Specialist
PROC: 10E0XZZ Delivery of Products of Conception, External Approach (ICD-10-PCS; principal; 2021-06-07)
PROC: 0HQ9XZZ Repair Perineum Skin, External Approach (ICD-10-PCS; 2021-06-07)
DX: O70.0 First degree perineal laceration during delivery (principal); Z37.0 Single live birth; O62.2 Other uterine inertia; Z3A.39 39 weeks gestation of pregnancy; Z20.822 Contact with and (suspected) exposure to COVID-19
CPT/HCPCS: 36415; 81003; 82947; 85025; 86592; 86850; 86900; 86901; 87340; 99218; J0595; J2210; J2550; J2590; J2795; J3010; J7120; U0003

== ENCOUNTER 2022-05-06 17:52 | Emergency (ER) | payer OTHER ==
[2022-05-06] MEDS ORDERED: IBUPROFEN 200 MG TAB PO ONE (18:34)
[2022-05-06] MEDS ORDERED: IBUPROFEN 400 MG TAB ONE ×2 (18:34→18:36)
[2022-05-06] MEDS ORDERED: HYDROCODONE/APAP 10/325 TAB ONE (18:35)
--- NOTE | 2022-05-06 21:31 | RAD REPORT ---
EXAM DESCRIPTION: RAD - Ankle Right 3 View - 05/06/2022 9:07 pm CLINICAL HISTORY: Pain;Smash injury COMPARISON: No comparisons FINDINGS: Tiny calcaneal spurs are present. No fracture or dislocation seen.
--- NOTE | 2022-05-18 17:06 | ER ---
[facility] Rad[facility] Mel[facility] Age: 31 yrs Sex: Female : 1990 Arrival Date: 05/06/2022 Time: 17:54 Bed 20 Private MD: Diagnosis: Sprain of ankle Presentation: 05/06 18:22 Chief complaint: Patient states: I was carrying my daughter down the stairs and missed kr3 the last step and twisted my foot and felt some popping, currently having spasms. I cannot put pressure on it or move my toes. Coronavirus screen: Vaccine status: Patient reports being unvaccinated. Ebola Screen: Patient denies travel to an Ebola-affected area in the 21 days before illness onset. 18:22 Method Of Arrival: Wheelchair kr3 18:26 Initial Sepsis Screen: Does the patient meet any 2 criteria? No. Patient's initial kr3 sepsis screen is negative. Does the patient have a suspected source of infection? No. Patient's initial sepsis screen is negative. Risk Assessment: Do you want to hurt yourself or someone else? Patient reports no desire to harm self or others. Onset of symptoms was May 06, 2022. 18:26 Acuity: TU 4 kr3 Triage Assessment: 18:27 General: Appears in no apparent distress. uncomfortable, Behavior is calm, cooperative, kr3 appropriate for age. Pain: Complains of pain in right foot, right ankle, lateral aspect of right foot, right Achilles, right heel, medial aspect of right foot, anterior aspect of right ankle and dorsum of right foot. Historical: - Allergies: 18:26 Codeine (Anaphylaxis); kr3 - PMHx: 18:26 acute stroke years ago; angioedema, allergic reactions multiple; kr3 - PSHx: 18:26 left ankle repair; kr3 - Immunization history:: Adult Immunizations not up to date. - Social history:: Smoking status: Patient reports the use of cigarette tobacco products, smokes one-half pack cigarettes per day. Screenin:00 [facility] ED Fall Risk Assessment (Adult) History of falling in the last 3 months, ll3 including since admission No falls in past 3 months (0 pts) Confusion or Disorientation No (0 pts) Intoxicated or Sedated No (0 pts) Impaired Gait No (0 pts) Mobility Assist Device Used No (0 pt) Altered Elimination No (0 pt) Score/Fall Risk Level 0 - 2 = Low Risk Oriented to surroundings, Maintained a safe environment, Educated pt \T\ family on fall prevention, incl call for assistance when getting out of bed. Abuse screen: Denies threats or abuse. Denies injuries from another. Nutritional screening: No deficits noted. Tuberculosis screening: No symptoms or risk factors identified. Assessment: 21:01 General: Appears uncomfortable, Behavior is calm, cooperative. Pain: Complains of pain ll3 in right lateral malleolus. Neuro: Level of Consciousness is awake, alert, obeys commands, Oriented to person, place, time, situation. Derm: Skin is pink, warm \T\ dry. Musculoskeletal: Swelling present in right ankle. Vital Signs: 18:22 Resp 20; Temp 97.8; kr3 18:26 BP 121 / 59; Pulse 90; Pulse Ox 96% on R/A; Weight 95.25 kg; Height 5 ft. 8 in. ; Pain kr3 10/10; 21:02 BP 122 / 68; Pulse 68; Resp 17; Pulse Ox 98% on R/A; ll3 18:26 Body Mass Index 31.93 (95.25 kg, 172.72 cm) kr3 18:26 Pain Scale: Adult kr3 ED Course: 17:54 Patient arrived in ED. mr 17:59 Anne Gaona, COMMISSARY CLERK-C [facility]. snw 17:59 Colin Baeza MD is Attending Physician. snw 18:26 Triage completed. kr3 18:28 Arm band placed on right wrist. kr3 21:01 Patient has correct armband on for positive identification. Bed in low position. Call ll3 light in reach. Side rails up X 1. Adult w/ patient. 21:01 No provider procedures requiring assistance completed. IV discontinued, intact, ll3 bleeding controlled, No redness/swelling at site. Pressure dressing applied. 21:09 Ankle Right 3 View XRAY In Process Unspecified. EDMS Administered Medications: 18:32 Drug: Ibuprofen PO 600 mg Route: PO; kr3 18:33 Drug: HYDROcodone-acetaminophen PO 10 mg-325 mg 1 tabs Route: PO; kr3 Medication: 21:01 VIS not applicable for this client. ll3 Outcome: 20:43 Discharge ordered by . snw 21:01 Discharged to home ambulatory, with crutches, with family. ll3 21:01 Condition: stable 21:01 Discharge instructions given to patient, family, Instructed on discharge instructions, follow up and referral plans. medication usage, Demonstrated understanding of instructions, follow-up care, medications, Prescriptions given X 1. 21:02 Patient left the ED. ll3 Signatures: Dispatcher [employer] EDMS Anne Gaona, SHAYE-C COMMISSARY CLERK-Diamond Begum Di Tracy RN RN ll3 Zo Sandoval RN RN kr3
--- NOTE | 2022-05-18 17:06 | EDPHYS ---
[facility] Name[facility] Radha Melvin Age: 31 yrs Sex: Female : 1990 Arrival Date: 05/06/2022 Time: 17:54 Bed 20 Private MD: ED Physician Colin Baeza HPI: 05/06 18:36 This 31 yrs old Female presents to ER via Wheelchair with complaints of Ankle Injury. snw 18:36 The patient presents with decreased range of motion, an injury, pain, tenderness. The snw complaints affect the right ankle. Onset: The symptoms/episode began/occurred just prior to arrival. Context: The problem was sustained at home, resulted from a mis-step by the patient, stairs, The mechanism of injury involved inversion of the affected ankle. The patient is unable to bear weight. The patient is not able to ambulate. Associated signs and symptoms: Pertinent positives: swelling. Severity of symptoms: At their worst the symptoms were moderate. The patient has experienced a previous episode. The patient has not recently seen a physician. Historical: - Allergies: 18:26 Codeine (Anaphylaxis); kr3 - PMHx: 18:26 acute stroke years ago; angioedema, allergic reactions multiple; kr3 - PSHx: 18:26 left ankle repair; kr3 - Immunization history:: Adult Immunizations not up to date. - Social history:: Smoking status: Patient reports the use of cigarette tobacco products, smokes one-half pack cigarettes per day. ROS: 18:35 Constitutional: Negative for fever, chills, and weight loss, Eyes: Negative for injury, snw pain, redness, and discharge, ENT: Negative for injury, pain, and discharge, Neck: Negative for injury, pain, and swelling, Cardiovascular: Negative for chest pain, palpitations, and edema, Respiratory: Negative for shortness of breath, cough, wheezing, and pleuritic chest pain, Abdomen/GI: Negative for abdominal pain, nausea, vomiting, diarrhea, and constipation, Back: Negative for injury and pain, : Negative for injury, bleeding, discharge, and swelling, Skin: Negative for injury, rash, and discoloration, Neuro: Negative for headache, weakness, numbness, tingling, and seizure, Psych: Negative for depression, anxiety, suicide ideation, homicidal ideation, and hallucinations. 18:35 MS/extremity: Positive for injury or acute deformity, decreased range of motion, pain, swelling, tenderness, of the right lateral malleolus. Exam: 18:34 Constitutional: This is a well developed, well nourished patient who is awake, alert, snw and in no acute distress. Head/Face: Normocephalic, atraumatic. Eyes: Pupils equal round and reactive to light, extra-ocular motions intact. Lids and lashes normal. Conjunctiva and sclera are non-icteric and not injected. Cornea within normal limits. Periorbital areas with no swelling, redness, or edema. ENT: Nares patent. No nasal discharge, no septal abnormalities noted. Tympanic membranes are normal and external auditory canals are clear. Oropharynx with no redness, swelling, or masses, exudates, or evidence of obstruction, uvula midline. Mucous membranes moist. Neck: Trachea midline, no thyromegaly or masses palpated, and no cervical lymphadenopathy. Supple, full range of motion without nuchal rigidity, or vertebral point tenderness. No Meningismus. Chest/axilla: Normal chest wall appearance and motion. Nontender with no deformity. No lesions are appreciated. Cardiovascular: Regular rate and rhythm with a normal S1 and S2. No gallops, murmurs, or rubs. Normal PMI, no JVD. No pulse deficits. Respiratory: Lungs have equal breath sounds bilaterally, clear to auscultation and percussion. No rales, rhonchi or wheezes noted. No increased work of breathing, no retractions or nasal flaring. Abdomen/GI: Soft, non-tender, with normal bowel sounds. No distension or tympany. No guarding or rebound. No evidence of tenderness throughout. Back: No spinal tenderness. No costovertebral tenderness. Full range of motion. Skin: Warm, dry with normal turgor. Normal color with no rashes, no lesions, and no evidence of cellulitis. Neuro: Awake and alert, GCS 15, oriented to person, place, time, and situation. Cranial nerves II-XII grossly intact. Motor strength 5/5 in all extremities. Sensory grossly intact. Cerebellar exam normal. Normal gait. Psych: Awake, alert, with orientation to person, place and time. Behavior, mood, and affect are within normal limits. 18:34 Musculoskeletal/extremity: Extremities: grossly normal except: noted in the right lateral malleolus and right ankle: decreased ROM, swelling, tenderness, ROM: full active range of motion, full passive range of motion, Pulses: are normal with no appreciated deficits, Sensation intact. Vital Signs: 18:22 Resp 20; Temp 97.8; kr3 18:26 BP 121 / 59; Pulse 90; Pulse Ox 96% on R/A; Weight 95.25 kg; Height 5 ft. 8 in. ; Pain kr3 10/10; 21:02 BP 122 / 68; Pulse 68; Resp 17; Pulse Ox 98% on R/A; ll3 18:26 Body Mass Index 31.93 (95.25 kg, 172.72 cm) kr3 18:26 Pain Scale: Adult kr3 MDM: 18:28 Patient medically screened. snw 20:41 Differential diagnosis: fracture, sprain, arthritis, gout, cellulitis. Data reviewed: snw vital signs, nurses notes, radiologic studies. I considered the following discharge prescriptions or medication management in the emergency department Medications were administered in the Emergency Department. See MAR. Independent interpretation of the following test(s) in the Emergency Department X-Ray: My interpretation is negative for acute fracture but ankle mortis widened.. Counseling: I had a detailed discussion with the patient and/or guardian regarding: the historical points, exam findings, and any diagnostic results supporting the discharge/admit diagnosis, radiology results, the need for outpatient follow up, for definitive care, to return to the emergency department if symptoms worsen or persist or if there are any questions or concerns that arise at home. Response to treatment:. Special discussion: Based on the history and exam findings, there is no indication for further emergent testing or inpatient evaluation. I discussed with the patient/guardian the need to see the orthopedic surgeon for further evaluation of the symptoms. I discussed with the patient/guardian the need to see the primary care provider for further evaluation of the symptoms. 05/06 18:29 Order name: Ankle Right 3 View XRAY snw 05/06 20:44 Order name: Crutches; Complete Time: 21:00 snw 05/06 20:44 Order name: Walking boot; Complete Time: 21:00 snw Administered Medications: 18:32 Drug: Ibuprofen PO 600 mg Route: PO; kr3 18:33 Drug: HYDROcodone-acetaminophen PO 10 mg-325 mg 1 tabs Route: PO; kr3 Disposition: 19:09 Co-signature as Attending Physician, Colin Baeza MD I reviewed the patient's care rt provided by the Advanced Practice Provider and agree with the diagnosis and treatment plan. Disposition Summary: 05/06/22 20:43 Discharge Ordered Location: Home snw Condition: Stable snw Diagnosis - Sprain of ankle snw Followup: snw - With: Emergency Department - When: As needed - Reason: Worsening of condition Followup: snw - With: Private Physician - When: 2 - 3 days - Reason: Recheck today's complaints, Continuance of care, Re-evaluation by your physician Discharge Instructions: - Discharge Summary Sheet snw - Ankle Sprain snw - Crutch Use, Adult snw - RICE Therapy for Routine Care of Injuries snw - Walking Boot, Adult snw Forms: - Medication Reconciliation Form snw - Thank You Letter snw - Antibiotic Education snw - Prescription Opioid Use snw Prescriptions: - Mobic 7.5 mg Oral Tablet - take 1 tablet by ORAL route once daily take with food; 20 tablet; Refills: 0, snw Product Selection Permitted Signatures: Dispatcher [employer] EDMS Anne Gaona, POST OFFICE MANAGER-C POST OFFICE MANAGER-Csnw Zo Sandoval RN RN kr3 Colin Baeza MD MD rt
== END 2022-05-06 21:02 | disposition home or self-care (01) ==
LOC: ER 17:52
DX: S93.401A Sprain of unspecified ligament of right ankle, initial encounter (principal); F17.210 Nicotine dependence, cigarettes, uncomplicated; Z88.5 Allergy status to narcotic agent
CPT/HCPCS: 99283

== ENCOUNTER 2023-01-08 11:08 | Emergency (ER) | payer OTHER, SELFPAY ==
--- NOTE | 2023-01-08 11:44 | RAD REPORT ---
EXAM DESCRIPTION: CT - Head Brain Wo Cont - 01/08/2023 11:36 am CLINICAL HISTORY: severe acute ROMERO, N/V COMPARISON: No comparisons TECHNIQUE: All CT scans are performed using dose optimization technique as appropriate and may inclu de automated exposure control or mA/KV adjustment according to patient size. FINDINGS: No intracranial hemorrhage, hydrocephalus or extra-axial fluid collection.No areas of brai n edema or evidence of midline shift. Pansinus disease with particular involvement of the right maxillary sinus and ethmoid air cells were there is circumferential thickening. The calvarium is intact. IMPRESSION: No acute intracranial abnormality. Probable chronic sinusitis. Acute component difficul t to exclude.
[2023-01-08 12:02] LABS: Absolute Lymphocytes (CBC) 1.3 K/uL (0.7-4.9); Hematocrit 44.6 % (36.0-45.0); Lymphocytes % 14.4 % (15.3-44.8); MCV 85.9 fL (80-100); MPV 8.5 fL (7.6-11.3); Platelets 264 thou/uL (152-406)
[2023-01-08] MEDS ORDERED: ACETAMINOPHEN 500 MG TAB ONE (12:11)
[2023-01-08] MEDS ORDERED: NA CHLORIDE 0.9% 1,000 ML ONE (12:11)
[2023-01-08 12:22] LABS: Bilirubin Direct 0.2 mg/dL (0-0.2); Bilirubin Indirect, Calculated 0.7 mg/dL (0.2-0.8); Bilirubin Total 0.9 mg/dL (0.2-1.0); Potassium 3.6 mEq/L (3.5-5.1); Protein, Total 8.2 g/dL (6.4-8.2); Troponin High Sensitivity 3.6 pg/mL (<58.9)
--- NOTE | 2023-01-08 13:30 | ER ---
[facility] Age: 32 yrs Sex: Female : 1990 Arrival Date: 01/08/2023 Time: 11:08 Bed 15 Private MD: Diagnosis: Acute sinusitis, unspecified;vasovagal syncope Presentation: 01/08 11:13 Chief complaint: EMS states: syncopal episode, pt was driving and felt lightheaded, eh3 pulled over and police arrived, pt had syncopal episode then vomited. EMS arrived, pt had 2 more syncopal episodes en route to hospital. Pt states she's had body aches that started this morning. Coronavirus screen: Vaccine status: Patient reports being unvaccinated. Ebola Screen: No symptoms or risks identified at this time. Initial Sepsis Screen: Does the patient meet any 2 criteria? No. Patient's initial sepsis screen is negative. Does the patient have a suspected source of infection? No. Patient's initial sepsis screen is negative. Risk Assessment: Do you want to hurt yourself or someone else? Patient reports no desire to harm self or others. Onset of symptoms was January 08, 2023. 11:13 Method Of Arrival: EMS: [facility] 11:13 Acuity: TU 3 eh3 Triage Assessment: 11:16 General: Appears in no apparent distress. uncomfortable, Behavior is cooperative, eh3 appropriate for age. Pain: Complains of pain in head Pain does not radiate. Pain currently is 6 out of 10 on a pain scale. Neuro: Level of Consciousness is awake, alert, obeys commands, Oriented to person, place, time, situation, Reports dizziness, headache a syncopal episode. Cardiovascular: Capillary refill < 3 seconds Patient's skin is warm and dry. Respiratory: Airway is patent Respiratory effort is even, unlabored, Respiratory pattern is regular, symmetrical. GI: Abdomen is round non-distended, Reports nausea, vomiting. : No signs and/or symptoms were reported regarding the genitourinary system. Derm: Skin is pink, warm \T\ dry. Musculoskeletal: Circulation, motion, and sensation intact. 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 - Social history:: Smoking status: Patient reports the use of cigarette tobacco products, smokes one-half pack cigarettes per day, Patient uses alcohol, occasionally. Screenin:18 [facility] ED Fall Risk Assessment (Adult) Score/Fall Risk Level 0 - 2 = Low Risk. Abuse eh3 screen: Denies threats or abuse. Denies injuries from another. Nutritional screening: No deficits noted. Tuberculosis screening: No symptoms or risk factors identified. Assessment: 11:18 Reassessment: No changes from previously documented assessment. See triage assessment. eh3 Neuro: Truong Agitation-Sedation Scale (RASS): 0 - Alert and Calm Level of Consciousness is awake, alert, obeys commands, Oriented to person, place, time, situation, Technician Anatomic Pathology are equal bilaterally Moves all extremities. Speech is normal, Facial symmetry appears normal, Pupils are PERRLA, Intact. Cardiovascular: Rhythm is sinus rhythm. 12:00 Reassessment: Patient appears in no apparent distress at this time. Patient and/or 3 family updated on plan of care and expected duration. Pain level reassessed. Patient is alert, oriented x 3, equal unlabored respirations, skin warm/dry/pink. 12:22 Reassessment: assisted pt with ambulating to the bathroom. reports feeling lightheaded kc6 and dizzy. pt ambulating back to the bathroom. reports dizziness, legs become weak. pt assisted back into bed with myself, JOSUÉ Nicole. Dr. Lara [facility]. vitals stable at BP 120/66, HR 83, 99% on RA. pt is awake, alert \T\ oriented x4. 13:00 Reassessment: Patient appears in no apparent distress at this time. Patient and/or 3 family updated on plan of care and expected duration. Pain level reassessed. Patient is alert, oriented x 3, equal unlabored respirations, skin warm/dry/pink. Vital Signs: 11:13 BP 123 / 60; Pulse 92; Resp 18; Temp 98.6(O); Pulse Ox 99% on R/A; Weight 90.72 kg; eh3 Height 5 ft. 8 in. ; 12:00 BP 116 / 69; Pulse 79; Resp 20; Pulse Ox 98% on R/A; eh3 13:00 BP 105 / 58; Pulse 75; Resp 17; Pulse Ox 98% on R/A; eh3 11:13 Body Mass Index 30.41 (90.72 kg, 172.72 cm) 3 ED Course: 11:12 Patient arrived in ED. eh3 11:14 Pierre Lara MD is Attending Physician. kb 11:16 Triage completed. eh3 11:16 Arm band placed on. eh3 11:18 Patient has correct armband on for positive identification. Bed in low position. Call eh3 light in reach. Side rails up X2. Provided Education on: use of call romero. Client placed on continuous cardiac and pulse oximetry monitoring. NIBP monitoring applied. 11:23 Bonnie Abdi, RN is Primary Nurse. eh3 11:38 CT Head Brain wo Cont In Process Unspecified. EDMS 11:45 Inserted saline lock: 20 gauge in right antecubital area, using aseptic technique. eh3 Blood collected. 14:00 No provider procedures requiring assistance completed. IV discontinued, intact, eh3 bleeding controlled, No redness/swelling at site. Pressure dressing applied. Administered Medications: 11:58 Drug: NS 0.9% IV 2000 ml IV at 999 ml/hr bolus Route: IV; Rate: 999 ml/hr; Site: right 3 antecubital; 13:15 Follow up: IV Status: Completed infusion; IV Intake: 1000ml 3 11:58 Drug: metoCLOPramide IVP 10 mg IVP once; over 1 to 2 minutes Route: IVP; Site: right 3 antecubital; 12:15 Follow up: Response: No adverse reaction 3 12:15 Drug: Acetaminophen PO 1000 mg PO once Route: PO; eh3 13:15 Follow up: Response: No adverse reaction; Pain is decreased eh3 Medication: 14:00 VIS not applicable for this client. 3 Point of Care Testing: Blood Glucose: 11:16 Blood Glucose: 104 mg/dL; 3 Ranges: Intake: 13:15 IV: 1000ml; Total: 1000ml. 3 Outcome: 13:30 Discharge ordered by . [email or web address] 14:00 Discharged to home ambulatory, with family, 3 14:00 Condition: stable 14:00 Discharge instructions given to patient, Instructed on discharge instructions, follow up and referral plans. medication usage, Demonstrated understanding of instructions, follow-up care, medications, Prescriptions given X 1, 14:05 Patient left the ED. eh3 Signatures: Dispatcher [employer] EDMS Sarah Townsend, PARTS PRODUCT ANALYST-C PARTS PRODUCT ANALYST-Pierre Carr MD MD [email or web address] Bonnie Abdi RN RN 3 Marija Nieves RN RN kc6 Corrections: (The following items were deleted from the chart) 11:16 11:16 PMHx: angioedema, allergic reactions multiple; eh3 eh3 12:25 12:22 Reassessment: assisted pt with ambulating to the bathroom. reports feeling kc6 lightheaded and dizzy. pt ambulating back to the bathroom. reports dizziness, legs become weak. pt assisted back into bed with myself, JOSUÉ Nicole. Dr. Lara and rotary drier feeder. vitals stable at BP 120/66, HR 83, 99% on RA kc6 19:18 14:00 Discharge instructions given to patient, Instructed on discharge instructions, 3 follow up and referral plans. Demonstrated understanding of instructions, follow-up care, eh3
--- NOTE | 2023-01-08 13:31 | EDPHYS ---
[facility] Name[facility] Radha Melvin Age: 32 yrs Sex: Female : 1990 Arrival Date: 01/08/2023 Time: 11:08 Bed 15 Private MD: ED Physician Pierre Lara HPI: 01/08 11:23 This 32 yrs old Female presents to ER via EMS with complaints of Syncope. jr11 11:23 The patient has experienced syncope. 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 She pulled over, police stopped, per witness that she had syncopal spell x2, she states she still was feeling nauseous. Patient states that she had acute onset severe headache with it, onset less than 1 hour. Patient did not have any tongue biting no incontinence, denies fever, review of system otherwise negative. EMS brought her here, gave her half a liter, feeling better but still with this headache.. 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 - Social history:: Smoking status: Patient reports the use of cigarette tobacco products, smokes one-half pack cigarettes per day, Patient uses alcohol, occasionally. ROS: 11:23 All other systems are negative, jr11 Exam: 11:23 Constitutional: This is a well developed, well nourished patient who is awake, alert, jr11 and in no acute distress. Head/Face: Normocephalic, atraumatic. Eyes: Extra-ocular motions intact. Lids and lashes normal. Conjunctiva and sclera are non-icteric and not injected. Cornea within normal limits. Periorbital areas with no swelling, redness, or edema. ENT: Nares patent. No nasal discharge, no septal abnormalities noted. Oropharynx with no redness, swelling, or masses, exudates, or evidence of obstruction, uvula midline. Mucous membranes moist. Neck: Trachea midline, no thyromegaly or masses palpated, and no cervical lymphadenopathy. Supple, full range of motion without nuchal rigidity, or vertebral point tenderness. No Meningismus. Chest/axilla: Normal chest wall appearance and motion. Nontender with no deformity. No lesions are appreciated. Respiratory: Lungs have equal breath sounds bilaterally, clear to auscultation and percussion. No rales, rhonchi or wheezes noted. No increased work of breathing, no retractions or nasal flaring. Abdomen/GI: Soft, non-tender, with normal bowel sounds. No distension or tympany. No guarding or rebound. No evidence of tenderness throughout. Back: No spinal tenderness. No costovertebral tenderness. Full range of motion. Skin: Warm, dry with normal turgor. Normal color with no rashes, no lesions, and no evidence of cellulitis. MS/ Extremity: Pulses equal, no cyanosis. Neurovascular intact. Full, normal range of motion. Neuro: Awake and alert, GCS 15, oriented to person, place, time, and situation. No gross motor or sensory deficits. Vital Signs: 11:13 BP 123 / 60; Pulse 92; Resp 18; Temp 98.6(O); Pulse Ox 99% on R/A; Weight 90.72 kg; 3 Height 5 ft. 8 in. ; 12:00 BP 116 / 69; Pulse 79; Resp 20; Pulse Ox 98% on R/A; 3 13:00 BP 105 / 58; Pulse 75; Resp 17; Pulse Ox 98% on R/A; [facility] 11:13 Body Mass Index 30.41 (90.72 kg, 172.72 cm) [facility] MDM: 11:14 Patient medically screened. kb 11:23 Differential Diagnosis: Patient with severe onset headache, nausea vomiting, 2 episodes jr11 of syncope, will CT, rule out subarachnoid bleed, rule out tumor. Patient otherwise with slightly tachycardic initially, to my exam normal, dry mucous membranes. Will hydrate. If work-up is benign, likely vasovagal syncope. Will get EKG, rule out arrhythmia although on exam she sounded regular. We will treat symptomatically in the meantime.. Data reviewed: vital signs. 11:37 ED course: EKG interpreted by me shows normal sinus rhythm, normal axis, normal jr intervals, no acute ST changes. personnel monitor interpreted by me shows normal sinus rhythm rate of 75. 13:26 ED course: Ct interpreted by me, no abnormality . ED course: Pt feeling better, would jrAylin like to go home, likely vasovagal, ROMERO resolved . ED course: will ambulate prior to DC. 01/08 11:20 Order name: Basic Metabolic Panel; Complete Time: 12:46 [facility] 01/08 11:20 Order name: CBC with Diff; Complete Time: 12:05 01/08 11:20 Order name: LFT's; Complete Time: 12:46 [facility] 01/08 11:20 Order name: Magnesium; Complete Time: 12:46 [facility] 01/08 11:20 Order name: Troponin HS; Complete Time: 12:46 [facility] 01/08 11:20 Order name: Test, Serum; Complete Time: 12:46 [facility] 01/08 11:20 Order name: CT Head Brain wo Cont; Complete Time: 11:53 [facility] 01/08 11:20 Order name: EKG; Complete Time: 11:21 [facility] 01/08 11:20 Order name: Cardiac monitoring; Complete Time: 11:23 [facility] 01/08 11:20 Order name: EKG - Nurse/Tech; Complete Time: 11:23 [facility] 01/08 11:20 Order name: IV Saline Lock; Complete Time: :58 [facility] 01/08 11:20 Order name: Labs collected and sent; Complete Time: :58 [facility] 01/08 11:20 Order name: O2 Per Protocol; Complete Time: : [facility] 01/08 11:20 Order name: O2 Sat Monitoring; Complete Time: : [facility] Administered Medications: 11:58 Drug: NS 0.9% IV 2000 ml IV at 999 ml/hr bolus Route: IV; Rate: 999 ml/hr; Site: right eh3 antecubital; 13:15 Follow up: IV Status: Completed infusion; IV Intake: 1000ml [facility] 11:58 Drug: metoCLOPramide IVP 10 mg IVP once; over 1 to 2 minutes Route: IVP; Site: right eh3 antecubital; 12:15 Follow up: Response: No adverse reaction [facility] 12:15 Drug: Acetaminophen PO 1000 mg PO once Route: PO; 3 13:15 Follow up: Response: No adverse reaction; Pain is decreased 3 Point of Care Testing: Blood Glucose: 11:16 Blood Glucose: 104 mg/dL; 3 Ranges: Critical Glucose Levels:Adult <50 mg/dl or >400 mg/dl <40 mg/dl or >180 mg/dl Disposition Summary: 01/08/23 13:30 Discharge Ordered Notes: Location: Home [facility] Condition: Stable [facility] Diagnosis - Acute sinusitis, unspecified [facility] - vasovagal syncope [facility] Discharge Instructions: - Discharge Summary Sheet [facility] - Sinusitis, Adult [facility] - Syncope [facility] - How to Perform a Sinus Rinse [facility] Forms: - Medication Reconciliation Form [facility] - Thank You Letter [facility] - Antibiotic Education [facility] - Prescription Opioid Use [facility] - Patient Portal Instructions [facility] - Leadership Thank You Letter [facility] Prescriptions: - Augmentin 875-125 mg Oral Tablet - take 1 tablet ORAL route every 12 hours for 10 days; 20 tablet; Refills: 0, [facility] Product Selection Permitted Signatures: Dispatcher [employer] EDSarah Isaac, FILM PROCESSOR-C FILM PROCESSOR-CkPierre Serrato MD MD [facility] Bonnie Abdi RN RN 3 Corrections: (The following items were deleted from the chart) 11:16 11:16 PMHx: angioedema, allergic reactions multiple; 3 3
[2023-01-08 14:24] VITALS: TEMP 98.6
[2023-01-08 14:29] VITALS: O2SAT 98
[2023-01-08 14:30] VITALS: BP 105/58
--- NOTE | 2023-01-09 17:24 | EKG ---
Test Date: 2023-01-08 Test Time: 11:27:45 Environmental Remediation Engineer: MAC MEASUREMENT RESULTS: Intervals: Rate: 76 CO: 146 QRSD: 86 QT: 382 QTc: 429 [place]: P: -16 CO: 146 QRS: 58 T: 38 INTERPRETIVE STATEMENTS: Normal sinus rhythm Normal ECG No previous ECG available for comparison Electronically Signed On 01-09-23 17:20:30 REGISTERED RADIOLOGIC TECHNOLOGIST by Melquiades Bruner
== END 2023-01-08 14:05 | disposition home or self-care (01) ==
LOC: ER 11:08
DX: R55 Syncope and collapse (principal); J01.90 Acute sinusitis, unspecified
CPT/HCPCS: 36415; 70450; 80048; 80076; 83735; 84484; 84703; 85025; 93005; 96361; 96374; 99285; J7030

== ENCOUNTER 2024-03-23 07:50 | Emergency (ER) | payer OTHER, SELFPAY ==
[2024-03-23] MEDS ORDERED: MORPHINE 4 MG/ML SYR ONE ×2 (08:04→09:38)
[2024-03-23] MEDS ORDERED: NA CHLORIDE 0.9% 1,000 ML ONE (08:05)
[2024-03-23] MEDS ORDERED: ONDANSETRON 4 MG/2 ML VIAL ONE (08:05)
[2024-03-23 08:24] LABS: Absolute Basophils 0.1 K/uL (0-0.5); Absolute Eosinophils 0.6 K/uL (0-0.5); Absolute Lymphocytes (CBC) 4.4 K/uL (0.7-4.9); Absolute Monocytes 0.8 K/uL (0.1-1.3); Absolute Neutrophil 6.6 K/uL (1.8-8.0); Basophils % 0.7 % (0-1.3); Eosinophils % 4.7 % (0-4.4); Hematocrit 43.8 % (36.0-45.0); Hemoglobin 14.5 g/dL (12.0-15.0); Lymphocytes % 35.1 % (15.3-44.8); MCHC 33.2 g/dL (32.0-36.0); MCV 87.2 fL (80-100); MPV 8.7 fL (7.6-11.3); Monocytes % 6.7 % (3.3-12.3); Neutrophils % 52.8 % (41.7-73.7); Platelets 351 thou/uL (152-406); RBC Red Blood Cell Count 5.02 M/uL (3.86-4.86); Red Cell Distribution Width 14.2 % (12.1-15.2)
[2024-03-23 08:51] LABS: Albumin 3.8 g/dL (3.4-5.0); Albumin/Globulin Ratio 0.9 (1.1-1.8); Anion Gap 10.6 mEq/L (5.0-15.0); Bilirubin Total 0.8 mg/dL (0.2-1.0); Globulin 4.1 g/dL (2.3-3.5); Potassium 3.6 mEq/L (3.5-5.1); Protein, Total 7.9 g/dL (6.4-8.2)
--- NOTE | 2024-03-23 09:15 | RAD REPORT ---
EXAMINATION: CT ABDOMEN AND PELVIS WITHOUT CONTRAST CLINICAL INDICATION: ABD PAIN TECHNIQUE: CT abdomen and pelvis was performed, without IV contrast, as per department protocol. Axia l, sagittal and coronal reconstructions were obtained. One or more of the following dose reduction techniques were used: Automated exposure control, adjustment of the mA and kV according to the patien t size, and iterative reconstruction. Unless otherwise specified, incidental findings do not require dedicated imaging follow-up. COMPARISON: No prior exam. FINDINGS: The lack of intravenous contrast limits the sensitivity of this exam for evaluation of solid visceral organs, vascular structures, and retroperitoneum. LOWER CHEST: The visualized lung bases are clear. LIVER:Normal in size and contour. No focal lesion. Cholecystectomy clips. SPLEEN: Normal size. No focal lesion. PANCREAS: No mass, ductal dilation, or ashley-pancreatic fluid. ADRENALS: Normal; no mass. KIDNEYS AND URETERS: Normal size and contour. No hydronephrosis. URINARY BLADDER: Normal contour. GASTROINTESTINAL TRACT: No evidence of bowel obstruction, significant free fluid, free air or abscess . There is mild sigmoid diverticulosis coli. APPENDIX: Normal appendix. LYMPH NODES: No lymphadenopathy. MUSCULOSKELETAL: No acute or suspicious osseous abnormality. ADDITIONAL FINDINGS: 5.5 cm left ovarian cyst. IMPRESSION: 5.5 cm left ovarian cyst, otherwise negative study.
[2024-03-23 09:19] LABS: Specific Gravity 1.021 (1.005-1.030); Urine Bilirubin NEGATIVE (Negative); Urine Blood Negative (Negative); Urine Clarity Clear (Clear); Urine Color Light-Yellow (Yellow); Urine Glucose NEGATIVE (Negative); Urine Ketones NEGATIVE (Negative); Urine Microscopic Reflex YN NO UMIC; Urine Nitrite NEGATIVE (Negative); Urine Protein NEGATIVE (Negative); Urine Urobilinogen Normal (Normal); Urine pH 5.5 (5.0-7.0)
--- NOTE | 2024-03-23 09:33 | RAD REPORT ---
EXAMINATION: US PELVIS TRANSVAGINAL WITH DOPPLER CLINICAL INDICATION: Female 33 years old. ABD PAIN TECHNIQUE: Real-time ultrasonography of the pelvis was performed transvaginally. Color and spectral D oppler evaluation of the ovaries was performed. COMPARISON: 2008 FINDINGS: UTERUS AND CERVIX: The uterus measures 8.0 x 5.3 x 4.8 cm (cervix to fundus x AP x transverse). The u terus is normal. No masses seen The endometrium is normal, 12 mm in thickness. RIGHT OVARY: Normal. The right ovary measures 2.3 x 1.5 x 1.3 cm. Normal color and spectral Doppler evaluation of the right ovary.. LEFT OVARY: Normal. The left ovary measures 5.8 x 5.4 x 5.4 cm. Normal color and spectral Doppler evaluation of the left ovary.. 4.7 x 4.6 cm simple appearing cyst. FREE FLUID: No free fluid. ADDITIONAL FINDINGS: IMPRESSION: No evidence of ovarian torsion or other acute process. 4.7 cm simple appearing left ovarian cyst. Recommendations for f/u of ovarian anechoic simple cyst, simple cyst with single thin <3 mm septation, or focal calcification in wall of cyst (1): Pre-menopause: <= 5 cm No follow-up imaging recommended >5 cm - <=7 cm US f/u annually >7 cm Consider MR w/IVC or surgical evaluation (1) Recommendations based on 2010 SRU Consensus Conference Statement on the Management of Asymptomatic Ovarian and Other Adnexal Cysts Imaged at US: Radiology. 2009;256(3):943-54
[2024-03-23] MEDS ORDERED: KETOROLAC 30 MG/ML INJ ONE (09:38)
--- NOTE | 2024-03-23 09:49 | ER ---
Nurse's Notes [facility] Name: Radha Melvin Age: 33 yrs Sex: Female : 1990 Arrival Date: 03/23/2024 Time: 07:50 Bed 12 Private MD: Diagnosis: Other ovarian cysts Presentation: 03/23 08:04 Chief complaint: Patient states: abd pain that began 45 mins ago. Coronavirus screen: ss Client denies travel out of the [place] in the last 14 days. Ebola Screen: Patient denies exposure to infectious person. Patient denies travel to an Ebola-affected area in the 21 days before illness onset. Initial Sepsis Screen: Does the patient meet any 2 criteria? No. Patient's initial sepsis screen is negative. Does the patient have a suspected source of infection? No. Patient's initial sepsis screen is negative. Risk Assessment: Do you want to hurt yourself or someone else? Patient reports no desire to harm self or others. Onset of symptoms was March 23, 2024. 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 - Infectious Disease History:: Denies. - Social history:: Smoking status: Patient denies any tobacco usage or history of. Screenin:57 [facility] [place] Withdrawal Assessment for Alcohol, revised (CIWA-Ar): Headache:. ld1 [facility] ED Fall Risk Assessment (Adult) History of falling in the last 3 months, including since admission No falls in past 3 months (0 pts) Confusion or Disorientation No (0 pts) Intoxicated or Sedated No (0 pts) Impaired Gait No (0 pts) Mobility Assist Device Used No (0 pt) Altered Elimination No (0 pt) Score/Fall Risk Level 0 - 2 = Low Risk Oriented to surroundings, Maintained a safe environment, Educated pt \T\ family on fall prevention, incl call for assistance when getting out of bed, Assessed \T\ reinforced patient's understanding of fall precautions, Provided non-skid footwear, Hourly rounding (assess needs \T\ fall precautionary measures) done, Used ambulatory aids as needed (educated on \T\ assisted with), Used gait belt as appropriate. Abuse screen: Denies threats or abuse. Denies injuries from another. Nutritional screening: No deficits noted. Tuberculosis screening: No symptoms or risk factors identified. Assessment: 09:57 General: Appears in no apparent distress. comfortable, Behavior is calm, cooperative, ld1 appropriate for age. Pain: Complains of pain in abdomen Pain does not radiate. Pain currently is 7 out of 10 on a pain scale. Quality of pain is described as throbbing, Pain began suddenly, Is continuous. Neuro: Level of Consciousness is awake, alert, obeys commands, Oriented to person, place, time, situation, Appropriate for age. Cardiovascular: Capillary refill < 3 seconds Patient's skin is warm and dry. Respiratory: Airway is patent Respiratory effort is even, unlabored. GI: Abdomen is flat, non-distended, Bowel sounds present X 4 quads. Abd is soft and non tender X 4 quads. : No signs and/or symptoms were reported regarding the genitourinary system. EENT: No signs and/or symptoms were reported regarding the EENT system. Derm: No signs and/or symptoms reported regarding the dermatologic system. Musculoskeletal: No signs and/or symptoms reported regarding the musculoskeletal system. Vital Signs: 08:04 BP 102 / 71; Pulse 101; Resp 22; Pulse Ox 99% on R/A; Weight 95.25 kg; Height 5 ft. 8 ss in. ; Pain 10/10; 08:04 Body Mass Index 31.93 (95.25 kg, 172.72 cm) ss 08:04 Pain Scale: Adult ss ED Course: 07:53 Patient arrived in ED. ra3 07:58 [facility]eferson [facility]C [facility] 07:58 Avni Casper MD is Attending Physician. dr5 08:05 Triage completed. ss 08:05 Arm band placed on right wrist. ss 08:09 CBC with Diff Sent. bc6 08:09 CMP Sent. bc6 08:09 Lipase Sent. bc6 08:09 Initial lab(s) drawn, by me, sent to lab. Inserted saline lock: 20 gauge in right bc6 antecubital area, using aseptic technique. Blood collected. Flushed with 10 mL NS. 09:[address] In Process Unspecified. EDMS 09:14 Alexandrea Bartlett, RN is Primary Nurse. 09:14 Urinalysis w/ reflexes Sent. 09:27 Transvaginal Study Probe In Process Unspecified. EDMS 09:57 Patient has correct armband on for positive identification. Placed in gown. Bed in low ld1 position. Call light in reach. Side rails up X2. monitor tech on. Pulse ox on. NIBP on. Door closed. Noise minimized. Warm blanket given. 09:57 No provider procedures requiring assistance completed. ld1 10:00 IV discontinued, intact, bleeding controlled, No redness/swelling at site. ld1 Administered Medications: 08:14 Drug: NS 0.9% IV 1000 ml IV at 1 bolus Per protocol; to be given as a bolus over 60 ss minutes Route: IV; Rate: 1 bolus; Site: right antecubital; 08:17 Drug: Ondansetron IVP 4 mg IVP once; over 2 minutes Route: IVP; Site: right antecubital;ss 08:17 Drug: morphine IVP or IV 4 mg IVP once over 4 mins Route: IVP; Infused Over: 4 mins; ss Site: right antecubital; 09:46 Drug: morphine IVP or IV 4 mg IVP once over 4 mins Route: IVP; Infused Over: 4 mins; ld1 Site: right antecubital; 09:46 Drug: Ketorolac IVP 15 mg IVP once Route: IVP; Site: right antecubital; ld1 Medication: 09:57 VIS not applicable for this client. ld1 Outcome: 09:49 Discharge ordered by . dr5 10:00 Discharged to home ambulatory, ld1 10:00 Condition: stable 10:00 Discharge instructions given to patient, Instructed on discharge instructions, follow up and referral plans. medication usage, Demonstrated understanding of instructions, follow-up care, medications, Prescriptions given X 2, 10:00 Patient left the ED. ld1 Signatures: Dispatcher [employer] EDMS Alexandrea Bartlett RN RN Susy Santos RN RN ld1 [place] 6 Christine Bob ra3 Lopez, Jeferson, CREATIVE TECHNOLOGIST-C CREATIVE TECHNOLOGIST-Cdr5
--- NOTE | 2024-03-23 09:49 | EDPHYS ---
Physician Documentation [facility] Name: Radha Melvin Age: 33 yrs Sex: Female : 1990 Arrival Date: 03/23/2024 Time: 07:50 Bed 12 Private MD: ED Physician Avni Casper HPI: 03/23 08:11 This 33 yrs old Female presents to ER via Ambulatory with complaints of dr5 Abdominal Pain. 08:11 The patient presents with abdominal pain in the lower abdomen. Onset: The dr5 symptoms/episode began/occurred 45 minute(s) ago. Patient is a 33-year-old female reporting no past medical history coming in with lower abdominal pain/cramping that started 45 minutes ago that are like child labor pains. Patient denies being . Patient states that she started her menstrual cycle yesterday. Patient has not taken any medications prior to arrival. Patient slow walking and hunched over to her room.. 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 - Infectious Disease History:: Denies. - Social history:: Smoking status: Patient denies any tobacco usage or history of. ROS: 08:11 Constitutional: as per hpi dr5 Exam: 08:11 Constitutional: This is a well developed, well nourished patient who is awake, alert, dr5 and in no acute distress. Head/Face: Normocephalic, atraumatic. Eyes: Pupils equal round and reactive to light, extra-ocular motions intact. Lids and lashes normal. Conjunctiva and sclera are non-icteric and not injected. Cornea within normal limits. Periorbital areas with no swelling, redness, or edema. Neck: Trachea midline, no thyromegaly or masses palpated, and no cervical lymphadenopathy. Supple, full range of motion without nuchal rigidity, or vertebral point tenderness. No Meningismus. Chest/axilla: Normal chest wall appearance and motion. Nontender with no deformity. No lesions are appreciated. Cardiovascular: Regular rate and rhythm with a normal S1 and S2. Normal PMI, no JVD. No pulse deficits. Respiratory: Lungs have equal breath sounds bilaterally, clear to auscultation. No rales, rhonchi or wheezes noted. No increased work of breathing, no retractions or nasal flaring. Back: No spinal tenderness. No costovertebral tenderness. Full range of motion. Skin: Warm, dry with normal turgor. Normal color with no rashes, no lesions, and no evidence of cellulitis. Neuro: Awake and alert, GCS 15, oriented to person, place, time, and situation. Cranial nerves II-XII grossly intact. Motor strength 5/5 in all extremities. Sensory grossly intact. Cerebellar exam normal. Normal gait. 08:11 Abdomen/GI: Inspection: abdomen appears normal, Bowel sounds: normal, Palpation: abdomen is soft and non-tender, in all quadrants, soft, nontender, Vital Signs: 08:04 BP 102 / 71; Pulse 101; Resp 22; Pulse Ox 99% on R/A; Weight 95.25 kg; Height 5 ft. 8 ss in. ; Pain 10/10; 08:04 Body Mass Index 31.93 (95.25 kg, 172.72 cm) ss 08:04 Pain Scale: Adult ss MDM: 07:58 Medical Screening Exam initiated dr5 09:09 ED course: Checked on patient after first dose of morphine. Patient looks remarkably dr5 better. Patient reports her pain has improved tremendously. Patient reports that she is still in pain. Will give another dose of morphine and add on Toradol. Concerns for possible stone. Will order CT stone protocol.. 09:58 Differential diagnosis: Ovarian Torsion, Kidney stone, ovarian cyst, UTI. Data dr5 reviewed: vital signs, nurses notes, lab test result(s), radiologic studies, CT scan, ultrasound. I considered the following discharge prescriptions or medication management in the emergency department Medications were administered in the Emergency Department. See MAR. Care significantly affected by the following Social Determinants of Health: Poor access to healthcare and/or lack of insurance, Poor access to transportation, Problems related to employment. Counseling: I had a detailed discussion with the patient and/or guardian regarding the historical points, exam findings, and any diagnostic results supporting the discharge/admit diagnosis, the presence of at least one elevated blood pressure reading (>120/80) during this emergency department visit, lab results, radiology results, the need for outpatient follow up, for definitive care, a family practitioner, an OB/Gyne specialist, to return to the emergency department if symptoms worsen or persist or if there are any questions or concerns that arise at home, Discussed with patient need for follow-up with [facility].. Medication response: Response to treatment: the patient's symptoms have resolved after treatment. ED course: Printed out CT and ultrasound results and stapled them. Told patient to take results to [facility] On her next visit. Recommended patient take ibuprofen to help with ovarian cyst pain. No torsion noted on ultrasound. No kidney stone noted on CT. Patient is feeling much better and well-appearing. Patient will return for worsening conditions and will follow up this week. Zofran given for nausea as needed. All questions answered.. 03/23 08:05 Order name: CBC with Diff; Complete Time: 08:30 [facility] 03/23 08:05 Order name: CMP; Complete Time: 08:55 [facility] 03/23 08:05 Order name: Lipase; Complete Time: 08:55 [facility] 03/23 08:05 Order name: Urinalysis w/ reflexes; Complete Time: 09:27 [facility] 03/23 08:05 Order name: Test, Serum; Complete Time: 08:42 [facility] 03/23 08:59 Order name: Stone Protocol CT; Complete Time: : [facility] 03/23 09:27 Order name: Transvaginal Study Probe; Complete Time: 09:34 [facility] 03/23 08:05 Order name: IV Saline Lock; Complete Time: 08:09 [facility] 03/23 08:05 Order name: Labs collected and sent; Complete Time: 08:09 [facility] Administered Medications: 08:14 Drug: NS 0.9% IV 1000 ml IV at 1 bolus Per protocol; to be given as a bolus over 60 ss minutes Route: IV; Rate: 1 bolus; Site: right antecubital; 08:17 Drug: Ondansetron IVP 4 mg IVP once; over 2 minutes Route: IVP; Site: right antecubital;ss 08:17 Drug: morphine IVP or IV 4 mg IVP once over 4 mins Route: IVP; Infused Over: 4 mins; ss Site: right antecubital; 09:46 Drug: morphine IVP or IV 4 mg IVP once over 4 mins Route: IVP; Infused Over: 4 mins; ld1 Site: right antecubital; 09:46 Drug: Ketorolac IVP 15 mg IVP once Route: IVP; Site: right antecubital; ld1 Disposition: 17:24 Co-signature as Attending Physician, Avni Casper MD I reviewed the patient's care rn provided by the Advanced Practice Provider and agree with the diagnosis and treatment plan. Disposition Summary: 03/23/24 09:49 Discharge Ordered Notes: Location: Home dr5 Condition: Stable dr5 Diagnosis - Other ovarian cysts dr5 Followup: dr5 - With: Emergency Department - When: As needed - Reason: Worsening of condition Followup: dr5 - With: Private Physician - When: 1 - 2 days - Reason: Recheck today's complaints, Continuance of care, Re-evaluation by your physician Discharge Instructions: - Discharge Summary Sheet dr5 - Ovarian Cyst dr5 - Ovarian Cyst, [id number]-[id number] dr5 Forms: - Work release form dr5 - Medication Reconciliation Form dr5 - Prescription Opioid Use dr5 - Patient Portal Instructions dr5 - Leadership Thank You Letter dr5 Prescriptions: - Zofran 4 mg Oral Tablet - take 1 tablet ORAL route every 12 hours As needed; 20 tablet; Refills: 0, dr5 Product Selection Permitted - Tramadol 50 mg Oral tablet - take 1 tablet ORAL route every 8 hours As needed as needed; 12 tablet; Refills: dr5 0, Product Selection Permitted Signatures: Dispatcher [employer] EDAvni Lizama MD MD rn Blanchard, Shelby, RN RN ss Sims, Lauren, RN RN ld1 Jeferson Lopez, BACTERIOLOGIST MEDICAL-C BACTERIOLOGIST MEDICAL-Cdr5 Corrections: (The following items were deleted from the chart) 08:05 08:05 CBC+H.LAB.BRZ ordered. EDMS EDMS 08:05 08:05 COMPREHENSIVE METABOLIC PANEL+C.LAB.BRZ ordered. EDMS EDMS 08:05 08:05 LIPASE+C.LAB.BRZ ordered. EDMS EDMS 08:05 08:05 Urinalysis+U.LAB.BRZ ordered. EDMS EDMS 08:05 08:05 TEST, SERUM+SC.LAB.BRZ ordered. EDMS EDMS 08:42 08:42 Pelvis Complete+US.RAD.BRZ ordered. EDMS EDMS
[2024-03-23 11:30] VITALS: BP 102/71; O2SAT 99
== END 2024-03-23 10:00 | disposition home or self-care (01) ==
LOC: ER 07:50
DX: N83.299 Other ovarian cyst, unspecified side (principal); Z88.5 Allergy status to narcotic agent
CPT/HCPCS: 85025; 36415; 84703; 81003; 83690; 80053; 76377; 74176; 76830; J2405; J7030; 96374; 96375; 99285